=== PATIENT | male | born 1950 | race Caucasian/White ===

== ENCOUNTER 2021-11-21 15:01 | Inpatient (IN) ==
[2021-11-21] MEDS ORDERED: 0.9 % SODIUM CHLORIDE 1,000 ML IV ONE ×2 (15:13→17:32)
--- NOTE | 2021-11-21 15:31 | Emergency Department Note ---
HPI <Lexie Rosa PA-C - Last Filed: 11/21/21 18:53> General Chief complaint: Fall Stated complaint: fall Time Seen by Provider: 11/21/21 15:12 Source: patient Mode of arrival: ambulatory Limitations: no limitations History of Present Illness HPI Narrative: 71-year-old male with history of bladder cancer status post urostomy, dementia, atrial fibrillation not on anticoagulants, thrombocythemia on hydroxyurea, T2DM, and hypertension presents with 48 hours of altered mental status. Daughter states that he was well up until Tuesday when he developed a cough. She noted that he was more unsteady on his feet and then sustained a fall on that was unwitnessed and is now complaining of left hip pain. Shortly after that he stopped eating, came confused, and this morning walked out to his shop unclothed. For this reason they brought him in for evaluation. Related Data Home Medications Medication Instructions Recorded Confirmed cartilage 40 mg-collagen II 10 1 tab PO QDAY 01/15/21 10/01/21 mg-boron 5 mg-hyaluronate 3.3 mg tablet (Smava) krill oil 500 mg capsule 500 mg PO QDAY cap 01/15/21 10/01/21 lisinopril 10 mg tablet 10 mg PO QDAY 01/15/21 10/01/21 fruguhmp-uam-wmpnv acid 300 1 tab PO QDAY 01/15/21 10/01/21 mcg-lycopene 600 mcg-lutein 300 mcg tablet (Centrum Silver Ultra Men's) aspirin 81 mg capsule,delayed 81 mg PO QDAY 04/13/21 10/01/21 release metformin 500 mg tablet 1,000 mg PO BID 04/13/21 10/01/21 cholecalciferol (vitamin D3) 50 50 mcg PO QDAY 09/16/21 10/01/21 mcg (2,000 unit) tablet (Vitamin D3) cranberry 36 mg PO QDAY 09/16/21 10/01/21 digoxin 125 mcg (0.125 mg) tablet 0.25 mcg PO .COMPLEX 09/16/21 10/01/21 glipizide 5 mg tablet 5 mg PO QDAY tab 09/16/21 10/01/21 hydroxyurea 500 mg capsule (Hydrea) 500 mg PO BID cap 09/16/21 10/01/21 Allergies Allergy/AdvReac Type Severity Reaction Status Date / Time No Known Drug Allergies Allergy Verified 10/01/21 07:35 Review of Systems <Lexie Rosa PA-C - Last Filed: 11/21/21 18:53> ROS ROS Narrative: Narrative: All systems ED: reviewed and negative except as stated. PFSH <Lexie Rosa PA-C - Last Filed: 11/21/21 18:53> Narrative Patient History Narrative: Narrative: Medical/Surgical/Family History All Active Problems (Updated 11/21/21 @ 19:31 by Christian Yeboah MD) Essential hypertension (Acute) Anemia, macrocytic (Acute) Thrombocythemia (Acute) Delirium (Acute) Sepsis (Acute) Acute UTI (Acute) Altered mental status (Acute) Acute hyponatremia (Acute) Medicare annual wellness visit, initial (Acute) Prostate cancer (Chronic) Migraines (Chronic) Sciatic nerve pain (Chronic) Diabetes mellitus (Chronic) Hematuria (Chronic) Chest pain (Chronic) Arthritis (Chronic) Rib fracture (Chronic) Encounter for smoking cessation counseling (Chronic) Tobacco abuse (Chronic) Dementia (Chronic) COPD (chronic obstructive pulmonary disease) (Chronic) Neuropathy (Chronic) Diabetes mellitus, type II (Chronic) Lumbar degenerative disc disease (Chronic) Lumbar spondylosis with myelopathy (Chronic) Lumbar radiculopathy (Chronic) Constipation (Chronic) Amnesia (Chronic) Dizziness (Chronic) Left hip pain (Chronic) Polycythemia (Chronic) Hypertension (Chronic) Left knee pain (Chronic) Low back pain (Chronic) Dehydration (Chronic) UTI (urinary tract infection) (Chronic) Sacral back pain (Chronic) Radicular low back pain (Chronic) Orthostatic dizziness (Chronic) Medical History Amnesia Arthritis Bladder cancer 1999 with urostomy bag Chest pain Constipation COPD (chronic obstructive pulmonary disease) Dehydration Dementia Diabetes mellitus Diabetes mellitus, type II Dizziness Encounter for smoking cessation counseling Hematuria Hypertension Left hip pain Left knee pain Low back pain Lumbar degenerative disc disease Lumbar radiculopathy Lumbar spondylosis with myelopathy Medicare annual wellness visit, initial Migraines Neuropathy Orthostatic dizziness Polycythemia Prostate cancer Pulmonary embolism 2000 Radicular low back pain Rib fracture Sacral back pain Sciatic nerve pain Tobacco abuse 2 ppd, doesn't inhale UTI (urinary tract infection) Surgical History History of herniorrhaphy History of knee surgery History of prostatectomy (~1999) With Ileal Conduit History of total cystectomy (~1999) Family History Other No pertinent family history Social History Smoking Status: Current every day smoker Alcohol Intake Frequency: 0-2 drinks per day Substance Use: does not use Exam <Lexie Rosa PA-C - Last Filed: 11/21/21 18:53> Narrative Narrative: General: Oriented to self and location, not oriented to date. NAD, nontoxic appearing. Pleasant and conversant. HEENT: PERRL, EOMI, normocephalic. Dry mucous membranes. Normal facies and normal dentition. Chest: Symmetric, no pain to palpation Respiratory: Lungs clear to auscultation bilaterally. No respiratory distress. Unlabored breathing. Audible dry cough. Heart: Regular rate and rhythm, no murmurs/clicks/rubs. Abdomen: Mild diffuse tenderness, Non distended, normal bowel tones. No organomegaly. Urostomy to right lower quadrant. Foul-smelling urine output. Extremities: Warm and well perfused. No edema. DP 2+ bilaterally. No venous stasis. Neuro: No focal deficits. Cranial nerves II-XII grossly normal. Skin: Warm dry, no rashes or lesions, no cyanosis. Psych: Normal mood and affect Heme/Lymph: No abnormal bruising General Limitations: no limitations Course <Lexie Rosa PA-C - Last Filed: 11/21/21 18:53> Course Course Narrative: 71-year-old male with recent unwitnessed fall presents with altered mental status over the last 48 hours Reevaluation(s) Reevaluation #1: Obtain head and neck CT to assure no intracranial pathology or fractures. AP of pelvis and bilateral hips to r/o fx CBC, CMP, lactic acid, blood cultures, chest x-ray, Covid and influenza swabs EKG Reevaluation #2: EKG shows sinus rhythm with rate 89 bpm and frequent PACs. There are approximately [address] depressions in lead V4 and approximately [address] depression in lead V5. This is changed from prior EKG dated 10/09/2019. For this reason we will obtain troponin. Patient is currently not complaining of chest pain. Reevaluation #3: Head and neck CT are negative. AP of the pelvis and bilateral hips is negative. Patient's urine dip was positive for infectious markers, so this has been sent for culture. Lactic acid came back at 2.4 and blood cultures x2 are pending. I have started 1 g IV ceftriaxone and have given 1 L IV normal saline and will start a second liter. Troponin is less than 0.01, will repeat an EKG Chest x-ray shows no acute infiltrates or effusions Additional Reevaluation(s): CMP with corrected sodium of 127. This was normal at 137 in August. BUN is elevated at 33 UA is Leukocyte esterace +, WBC+, bacteria+ Repeat EKG shows normal sinus rhythm with improved ST depression in lead V4 Vital Signs Vital signs: Vital Signs Temperature 98.7 F 11/21/21 15:01 Pulse Rate 84 11/21/21 15:01 Respiratory Rate 18 11/21/21 15:01 Blood Pressure 147/72 11/21/21 15:01 Pulse Oximetry (%) 94 11/21/21 15:01 Temperature 98.7 F 11/21/21 15:01 Pulse Rate 89 11/21/21 19:31 Respiratory Rate 15 11/21/21 19:31 Blood Pressure 127/75 11/21/21 19:31 Pulse Oximetry (%) 92 11/21/21 19:31 [facility] <Lexie Rosa PA-C - Last Filed: 11/21/21 18:53> [facility] Narrative Medical decision making narrative: Altered mental status Hyponatremia UTI Sepsis Patient meets criteria for sepsis and admission. He has been given 1 g of IV ceftriaxone. Blood cultures and urine cultures are currently pending. He has received 1.5 L of IV fluids. Head CT was negative for acute intracranial findings. Patient has been discussed with Dr. Yeboah, hospitalist, who has accepted the patient for admission. Lab Data Result diagrams: 11/21/21 15:34 11/21/21 15:34 Labs: Lab Results 11/21/21 11/21/21 11/21/21 Range/Units 15:34 15:34 15:34 WBC 7.2 (4.5-11.0) K/mcL RBC 3.76 L (4.63-6.08) M/mcL Hgb 12.9 L (13.7-17.5) g/dL Hct 38.2 L (40.1-51.0) % MCV 101.6 H (80.0-100.0) fL MCH 34.3 H (26.0-34.0) pg MCHC 33.8 (31.0-36.0) g/dL RDW 13.7 (11.5-14.5) % Plt Count 264 (140-440) K/mcL MPV 9.7 (7.4-10.4) fL Neut % (Auto) 80.4 H (38.0-78.0) % Lymph % (Auto) 8.5 L (15.5-49.0) % [place]hing % (Auto) 10.8 (1.0-12.0) % Eos % (Auto) 0 (0.0-7.0) % Baso % (Auto) 0.3 (0.0-2.0) % Lymph # (Auto) 0.61 L (1.50-4.80) K/mcL [place]hing # (Auto) 0.78 (0.10-0.90) K/mcL Eos # (Auto) 0 (0.00-0.70) K/mcL Baso # (Auto) 0.02 (0.00-0.30) K/mcL Absolute Neutrophils 5.78 (1.80-8.00) K/mcL VBG Lactic Acid 2.4 H (0.5-2.0) mmol/L Sodium 124 L (133-145) mmol/L Potassium 3.8 (3.3-5.1) mmol/L Chloride 88 L (96-108) mmol/L Carbon Dioxide 22 (22-30) mmol/L Anion Gap 14.0 (8.0-16.0) BUN 33 H (8-23) mg/dL Creatinine 0.9 (0.7-1.2) mg/dL GFR Calculation 85 Glucose 240 H (70-105) mg/dL Calcium 9.5 (8.6-10.4) mg/dL Total Bilirubin 1.3 H (0.1-1.0) mg/dL AST 61 H (<40) U/L ALT 28 (<40) U/L Alkaline Phosphatase 40 (39-117) U/L Troponin T (<0.03) ng/mL Total Protein 7.2 (5.9-8.4) gm/dL Albumin 3.7 (3.2-5.2) gm/dL Globulin 3.5 (2.2-3.7) gm/dL Albumin/Globulin Ratio 1.1 (1.0-2.3) Urine Color Urine Appearance (Clear) Urine pH (5.0-9.0) Ur Specific [place] (1.000-1.035) Urine Protein (Negative) mg/dL Urine Glucose (UA) (Negative) mg/dL Urine Ketones (Negative) mg/dL Urine Occult Blood (Negative) mg/dL Urine Nitrate (Negative) Urine Bilirubin (Negative) mg/dL Urine Urobilinogen mg/dL Ur Leukocyte Esterase (Negative) /uL Urine RBC (0-3) /hpf Urine WBC (0-4) /hpf Ur Squamous Epith Cells (0-4) /hpf Urine Bacteria (0) /hpf Hyaline Casts (0-2) /lph Urine Mucus (None) /hpf Ur Culture Indicated? Digoxin ng/mL 11/21/21 11/21/21 11/21/21 Range/Units 15:34 15:34 16:24 WBC (4.5-11.0) K/mcL RBC (4.63-6.08) M/mcL Hgb (13.7-17.5) g/dL Hct (40.1-51.0) % MCV (80.0-100.0) fL MCH (26.0-34.0) pg MCHC (31.0-36.0) g/dL RDW (11.5-14.5) % Plt Count (140-440) K/mcL MPV (7.4-10.4) fL Neut % (Auto) (38.0-78.0) % Lymph % (Auto) (15.5-49.0) % Pershing % (Auto) (1.0-12.0) % Eos % (Auto) (0.0-7.0) % Baso % (Auto) (0.0-2.0) % Lymph # (Auto) (1.50-4.80) K/mcL [place]hing # (Auto) (0.10-0.90) K/mcL Eos # (Auto) (0.00-0.70) K/mcL Baso # (Auto) (0.00-0.30) K/mcL Absolute Neutrophils (1.80-8.00) K/mcL VBG Lactic Acid (0.5-2.0) mmol/L Sodium (133-145) mmol/L Potassium (3.3-5.1) mmol/L Chloride (96-108) mmol/L Carbon Dioxide (22-30) mmol/L Anion Gap (8.0-16.0) BUN (8-23) mg/dL Creatinine (0.7-1.2) mg/dL GFR Calculation Glucose (70-105) mg/dL Calcium (8.6-10.4) mg/dL Total Bilirubin (0.1-1.0) mg/dL AST (<40) U/L ALT (<40) U/L Alkaline Phosphatase (39-117) U/L Troponin T < 0.01 (<0.03) ng/mL Total Protein (5.9-8.4) gm/dL Albumin (3.2-5.2) gm/dL Globulin (2.2-3.7) gm/dL Albumin/Globulin Ratio (1.0-2.3) Urine Color Yellow Urine Appearance Hazy A (Clear) Urine pH 5.0 (5.0-9.0) Ur Specific [place] 1.017 (1.000-1.035) Urine Protein 100 A (Negative) mg/dL Urine Glucose (UA) 50 A (Negative) mg/dL Urine Ketones Negative (Negative) mg/dL Urine Occult Blood 0.20 (Negative) mg/dL Urine Nitrate Negative (Negative) Urine Bilirubin Negative (Negative) mg/dL Urine Urobilinogen Negative mg/dL Ur Leukocyte Esterase 75 A (Negative) /uL Urine RBC 1 (0-3) /hpf Urine WBC 44 H (0-4) /hpf Ur Squamous Epith Cells 0 (0-4) /hpf Urine Bacteria Mod A (0) /hpf Hyaline Casts 4 H (0-2) /lph Urine Mucus Few A (None) /hpf Ur Culture Indicated? yes Digoxin 1.5 ng/mL ED POC Tests ED POC Tests: EMELINA - Influenza A Negative EMELINA - Influenza B Negative EMELINA - SARS Antigen Negative Discharge Plan Patient/Caregiver Discharge Instructions Pt seen by [facility]/PA only: Yes Clinical Impression: Sepsis, Acute UTI, Altered mental status, Acute hyponatremia Patient Disposition: Xfer As Inpt ([facility]) Condition: Fair Discharge Date/Time: 11/21/21 19:46
--- NOTE | 2021-11-21 16:25 | Cat Scan Report ---
History: Fell with head injury TECHNIQUE: The brain was imaged without contrast in axial plane at 2.5 mm intervals. Sagittal and coronal reformats were created. The radiation exposure was limited using dose reduction technology. FINDINGS: Mild generalized cerebral atrophy is present. There is an old infarct with encephalomalacia inferiorly and medially in the left cerebellar hemisphere. No acute infarct is present. There is no hemorrhage or mass effect. Ventricles are normal in size, allowing for atrophy. No abnormal extra-axial fluid collection is present. The bone windows show no skull fracture. Mucosal thickening is seen along the andrew of many of the ethmoid air cells bilaterally. Patient has a prosthetic left orbital globe. Comparison with the prior brain MRI done on 11/07/19 and shows no change in appearance of the brain. 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
[2021-11-21] MEDS ORDERED: cefTRIAXone 1 GM VIAL IV ONE (16:28)
[2021-11-21 16:29] LABS: Basophils # (Auto) 0.02 K/mcL (0.00-0.30); Basophils % (Auto) 0.3 % (0.0-2.0); Eosinophils # (Auto) 0 K/mcL (0.00-0.70); Eosinophils % (Auto) 0 % (0.0-7.0); Hematocrit 38.2 % (40.1-51.0); Hemoglobin 12.9 g/dL (13.7-17.5); Lymphocytes # (Auto) 0.61 K/mcL (1.50-4.80); Lymphocytes % (Auto) 8.5 % (15.5-49.0); Mean Cell Volume 101.6 fL (80.0-100.0); Mean Corpuscular HGB Conc 33.8 g/dL (31.0-36.0); Mean Platelet Volume 9.7 fL (7.4-10.4); Monocytes # (Auto) 0.78 K/mcL (0.10-0.90); Monocytes % (Auto) 10.8 % (1.0-12.0); Neutrophils % (Auto) 80.4 % (38.0-78.0); Platelet Count 264 K/mcL (140-440); RBC 3.76 M/mcL (4.63-6.08); Red Cell Distribution Width 13.7 % (11.5-14.5); WBC 7.2 K/mcL (4.5-11.0)
[2021-11-21 16:54] LABS: ALT/SGPT 28 U/L (<40); AST/SGOT 61 U/L (<40); Albumin 3.7 gm/dL (3.2-5.2); Albumin/Globulin Ratio 1.1 (1.0-2.3); Alkaline Phosphatase 40 U/L (39-117); Bilirubin,Total 1.3 mg/dL (0.1-1.0); Blood Urea Nitrogen 33 mg/dL (8-23); Calcium 9.5 mg/dL (8.6-10.4); Carbon Dioxide 22 mmol/L (22-30); Chloride 88 mmol/L (96-108); Globulin 3.5 gm/dL (2.2-3.7); Glomerular Filtration Rate 85; Glucose 240 mg/dL (70-105)
[2021-11-21 17:32] LABS: Appearance,Urine HAZY (Clear); Bacteria,Urine MOD /hpf (0); Bilirubin,Urine Negative (Negative); Color,Urine YELLOW; Culture Indicated,Urine yes; Glucose,Urine (UA) 50 mg/dL (Negative); Ketones,Urine Negative (Negative); Leukocyte Esterase,Urine 75 /uL (Negative); Mucus,Urine FEW /hpf; Nitrate,Urine Negative (Negative); Protein,Urine 100 mg/dL (Negative); Specific Gravity,Urine 1.017 (1.000-1.035); Urine Hyaline Cast 4 /lph (0-2); Urine RBC 1 /hpf (0-3); Urine Squamous Epithelial Cell 0 /hpf (0-4); Urine WBC 44 /hpf (0-4); Urobilinogen,Urine Negative
[2021-11-21 19:03] LABS: Digoxin 1.5 ng/mL
--- NOTE | 2021-11-21 19:38 | Internal Med History&Physical ---
HPI History of Present Illness Patient information: Note initiated : 11/21/21 at 7:20 pm Service Date, if different from initiated Date: [] Patient: Kwabena Fong 71 y/o M admitted on for fall. Chief Complaint: [altered mental status] Chief complaint: altered mental status History of present illness: Mr. Fong is a 71 year old M h/o bladder cancer s/p urostomy, T2DM, dementia, atrial fibrillation not on anticoagulant, thrombocythemia, essential HTN, p/w altered mental status with increasing confusion for 2 days and fall yesterday. Urostomy bag was last exchanged "long time ago". Daughter noted patient to be more confused than his baseline for the last 2 days. Patient had a unwitnessed fall yesterday (11/20) and now is c/o left hip pain. History otherwise limited by patient's mental status as well as absence of caregiver/family at the bedside. Vital signs all within normal limits upon ED presentation. Labs significant for lack of leukocytosis with EBC 7.2. Lactic acid 2.4. Serum sodium level 124 with baseline 137. Blood glucose 240. UA suggestive of presence of UTI. CT head w/o contrast showed on acute intracranial pathologies. Hip/pelvis X ray no signs of bone fracture of joint dislocation. Review of Systems ROS unobtainable: due to mental status PFSH PFSH All Active Problems (Updated 11/21/21 @ 19:31 by Christian Yeboah MD) Essential hypertension (Acute) Anemia, macrocytic (Acute) Thrombocythemia (Acute) Delirium (Acute) Sepsis (Acute) Acute UTI (Acute) Altered mental status (Acute) Acute hyponatremia (Acute) Medicare annual wellness visit, initial (Acute) Prostate cancer (Chronic) Migraines (Chronic) Sciatic nerve pain (Chronic) Diabetes mellitus (Chronic) Hematuria (Chronic) Chest pain (Chronic) Arthritis (Chronic) Rib fracture (Chronic) Encounter for smoking cessation counseling (Chronic) Tobacco abuse (Chronic) Dementia (Chronic) COPD (chronic obstructive pulmonary disease) (Chronic) Neuropathy (Chronic) Diabetes mellitus, type II (Chronic) Lumbar degenerative disc disease (Chronic) Lumbar spondylosis with myelopathy (Chronic) Lumbar radiculopathy (Chronic) Constipation (Chronic) Amnesia (Chronic) Dizziness (Chronic) Left hip pain (Chronic) Polycythemia (Chronic) Hypertension (Chronic) Left knee pain (Chronic) Low back pain (Chronic) Dehydration (Chronic) UTI (urinary tract infection) (Chronic) Sacral back pain (Chronic) Radicular low back pain (Chronic) Orthostatic dizziness (Chronic) Medical History Amnesia Arthritis Bladder cancer 1999 with urostomy bag Chest pain Constipation COPD (chronic obstructive pulmonary disease) Dehydration Dementia Diabetes mellitus Diabetes mellitus, type II Dizziness Encounter for smoking cessation counseling Hematuria Hypertension Left hip pain Left knee pain Low back pain Lumbar degenerative disc disease Lumbar radiculopathy Lumbar spondylosis with myelopathy Medicare annual wellness visit, initial Migraines Neuropathy Orthostatic dizziness Polycythemia Prostate cancer Pulmonary embolism 1999 Radicular low back pain Rib fracture Sacral back pain Sciatic nerve pain Tobacco abuse 2 ppd, doesn't inhale UTI (urinary tract infection) Surgical History History of herniorrhaphy History of knee surgery History of prostatectomy (~1999) With Ileal Conduit History of total cystectomy (~1999) Family History Other No pertinent family history Social History household members: spouse marital status: education level: college occupational status: retired smoking status: Current every day smoker alcohol intake frequency: 0-2 drinks per day substance use type: does not use MEDS/ALLERGIES Home Medications and Allergies Home Medications Medication Instructions Recorded Confirmed Type cartilage 40 mg-collagen II 10 1 tab PO QDAY 01/15/21 10/01/21 History mg-boron 5 mg-hyaluronate 3.3 mg tablet ([employer]) krill oil 500 mg capsule 500 mg PO QDAY cap 01/15/21 10/01/21 History lisinopril 10 mg tablet 10 mg PO QDAY 01/15/21 10/01/21 History vprygbzy-may-spokr acid 300 1 tab PO QDAY 01/15/21 10/01/21 History mcg-lycopene 600 mcg-lutein 300 mcg tablet (Centrum Silver Ultra Men's) aspirin 81 mg capsule,delayed 81 mg PO QDAY 04/13/21 10/01/21 History release metformin 500 mg tablet 1,000 mg PO BID 04/13/21 10/01/21 History cholecalciferol (vitamin D3) 50 50 mcg PO QDAY 09/16/21 10/01/21 History mcg (2,000 unit) tablet (Vitamin D3) cranberry 36 mg PO QDAY 09/16/21 10/01/21 History digoxin 125 mcg (0.125 mg) tablet 0.25 mcg PO .COMPLEX 09/16/21 10/01/21 History glipizide 5 mg tablet 5 mg PO QDAY tab 09/16/21 10/01/21 History hydroxyurea 500 mg capsule (Hydrea) 500 mg PO BID cap 09/16/21 10/01/21 History Allergies Allergy/AdvReac Type Severity Reaction Status Date / Time No Known Drug Allergies Allergy Verified 10/01/21 07:35 EXAM Constitutional Vitals: Temp Pulse Resp BP Pulse Ox 37.1 C 91 H 20 124/67 94 11/21/21 15:01 11/21/21 19:01 11/21/21 19:01 11/21/21 19:01 11/21/21 19:01 General appearance: cooperative, disheveled and no acute distress Head Head exam: Present atraumatic and normocephalic Eye Eye exam: Present EOMI and PERRL ENT ENT exam: Present mucous membranes moist, normal exam and normal external ear exam Neck Neck exam: Present normal inspection; Absent lymphadenopathy, tenderness or thyromegaly Respiratory Respiratory exam: Absent accessory muscle use, respiratory distress or wheezes Cardiovascular Cardiovascular exam: Present irregular rhythm; Absent JVD GI/Abdominal GI/Abdominal exam: Present normal bowel sounds and soft; Absent organomegaly or tenderness Rectal Rectal exam: Present deferred Additional comments: Urostomy bag in place Extremities Exam Extremities exam: Present full ROM and normal capillary refill; Absent normal inspection or tenderness Additional comments: Deformed bilateral toes Neurological Exam Neurological exam: Present alert and CN II-XII intact; Absent motor sensory deficit or oriented X3 Additional comments: oriented X2 to person and time only Psychiatric Psychiatric exam: Present normal affect and normal mood; Absent anxious or depressed Skin Skin exam: Present dry and intact DATA Data Completed and Pending Labs: Labs from last 24 hours 11/21/21 11/21/21 11/21/21 16:24 15:34 15:34 WBC RBC Hgb Hct MCV MCH MCHC RDW Plt Count MPV Neut % (Auto) Lymph % (Auto) Falls % (Auto) Eos % (Auto) Baso % (Auto) Lymph # (Auto) [place] # (Auto) Eos # (Auto) Baso # (Auto) Absolute Neutrophils VBG Lactic Acid Sodium Potassium Chloride Carbon Dioxide Anion Gap BUN Creatinine GFR Calculation Glucose Calcium Total Bilirubin AST ALT Alkaline Phosphatase Troponin T < 0.01 Total Protein Albumin Globulin Albumin/Globulin Ratio Urine Color Yellow Urine Appearance Hazy A Urine pH 5.0 Ur Specific [place] 1.017 Urine Protein 100 A Urine Glucose (UA) 50 A Urine Ketones Negative Urine Occult Blood 0.20 Urine Nitrate Negative Urine Bilirubin Negative Urine Urobilinogen Negative Ur Leukocyte Esterase 75 A Urine RBC 1 Urine WBC 44 H Ur Squamous Epith Cells 0 Urine Bacteria Mod A Hyaline Casts 4 H Urine Mucus Few A Ur Culture Indicated? yes Digoxin 1.5 11/21/21 11/21/21 11/21/21 15:34 15:34 15:34 WBC 7.2 RBC 3.76 L Hgb 12.9 L Hct 38.2 L MCV 101.6 H MCH 34.3 H MCHC 33.8 RDW 13.7 Plt Count 264 MPV 9.7 Neut % (Auto) 80.4 H Lymph % (Auto) 8.5 L [place] % (Auto) 10.8 Eos % (Auto) 0 Baso % (Auto) 0.3 Lymph # (Auto) 0.61 L [place] # (Auto) 0.78 Eos # (Auto) 0 Baso # (Auto) 0.02 Absolute Neutrophils 5.78 VBG Lactic Acid 2.4 H Sodium 124 L Potassium 3.8 Chloride 88 L Carbon Dioxide 22 Anion Gap 14.0 BUN 33 H Creatinine 0.9 GFR Calculation 85 Glucose 240 H Calcium 9.5 Total Bilirubin 1.3 H AST 61 H ALT 28 Alkaline Phosphatase 40 Troponin T Total Protein 7.2 Albumin 3.7 Globulin 3.5 Albumin/Globulin Ratio 1.1 Urine Color Urine Appearance Urine pH Ur Specific [place] Urine Protein Urine Glucose (UA) Urine Ketones Urine Occult Blood Urine Nitrate Urine Bilirubin Urine Urobilinogen Ur Leukocyte Esterase Urine RBC Urine WBC Ur Squamous Epith Cells Urine Bacteria Hyaline Casts Urine Mucus Ur Culture Indicated? Digoxin A/P Assessment and plan (1) Acute UTI: Status: Acute (2) Diabetes mellitus, type II: Status: Chronic (3) Bladder cancer: Status: Resolved Comment: 1999 with urostomy bag (4) Dementia: Status: Chronic (5) Acute hyponatremia: Status: Acute (6) Delirium: Status: Acute (7) Thrombocythemia: Status: Acute (8) Anemia, macrocytic: Status: Acute (9) Essential hypertension: Status: Acute Narrative A/P Narrative: Assessment and Plans: 1. UTI with associated acute delirium, in the context of h/o bladder cancer s/p urostomy placement: Inpatient PCU telemetry Serial lactic acid Procalcitonin level Blood culture Urine culture cbc w/ auto diff in the morning to trend WBC level Roephin s/p IV fluid bolus given in the ED, to be followed by NS@75cc/hr Tylenol PRN fever Urostomy bag exchanged in the ED Physical therapy Occupational therapy 2. Acute hyponatremia: s/p IV fluid bolus given in the ED, to be followed by NS@75cc/hr Goal of correction 8-10 point over the first 24 hour to avoid over correction with associated neurological consequences such as [place] Myelynolysis BMP q6hr 3. T2DM; HgA1c Hold Metformin Glipizide Medium scale SSI AC HS Accu Chek AC HS Hypoglycemia protocol Diabetic diet 4. Permanent atrial fibrillation: [id number] score of 3, not on anticoagulation therapy due to increased fall risk and recent fall(s) Digoxin 5. Thrombocythemia: Hydroxyurea 6. Dementia: Continue to monitor, treat overlapping delirium with IV fluid and antibiotics 7. Macrocytic hyperchromic anemia: cbc w/ auto diff in the morning to trend H/H 8. Essential HTN: Currently normotensive GI ppx: not currently indicated DVT ppx: Lovenox Code status: Full Prognosis: guarded Disposition: inpatient PCU ; PT OT Time Spent With Patient Time: Total time spent is greater than 50% in coordination of care (as documented) at patient's floor/unit and/or counseling patient: Total time spent with greater than 50% in coordination of care (as documented) at patient's floor/unit and/or counseling patient:: Greater than 35 minutes
[2021-11-21] MEDS ORDERED: LACTULOSE 20 GM/30 ML ORAL.SOL PO PRN (19:52)
[2021-11-21] MEDS ORDERED: DEXTROSE 31 GM ORAL.SUSP PO PRN (19:52)
[2021-11-21] MEDS ORDERED: IPRATROPIUM/ALBUTEROL 3 ML AMPUL.NEB NEB PRN (19:52)
[2021-11-21] MEDS ORDERED: DEXTROSE 50% 50 ML VIAL IV PRN (19:52)
[2021-11-21] MEDS ORDERED: SENNOSIDES 1 TABLET PO PRN (19:52)
[2021-11-21] MEDS ORDERED: ONDANSETRON 4 MG/2 ML VIAL IV PRN (19:52)
[2021-11-21] MEDS ORDERED: cefTRIAXone 1 GM in DEXTROSE 5% IN WATER 50 ML IV SCH (19:52)
[2021-11-21] MEDS: 0.9 % SODIUM CHLORIDE 1,000 ML IV SCH (20:25)
[2021-11-21] MEDS: ACETAMINOPHEN 325 MG TABLET PO PRN (20:25)
[2021-11-21] MEDS: DOCUSATE SODIUM 100 MG CAPSULE PO SCH (20:26)
[2021-11-21] MEDS: 0.9 % SODIUM CHLORIDE 10 ML SYRINGE IV SCH (20:26)
[2021-11-21] MEDS: INSULIN LISPRO 1 UNIT/0.01 ML UNIT SQ SCH (20:26)
[2021-11-21] MEDS: HYDROXYUREA 500 MG CAPSULE PO SCH (20:41)
[2021-11-21 21:27] LABS: ALT/SGPT 29 U/L (<40); AST/SGOT 58 U/L (<40); Albumin 3.6 gm/dL (3.2-5.2); Albumin/Globulin Ratio 1.1 (1.0-2.3); Alkaline Phosphatase 38 U/L (39-117); Blood Urea Nitrogen 28 mg/dL (8-23); Calcium 8.8 mg/dL (8.6-10.4); Carbon Dioxide 21 mmol/L (22-30); Chloride 94 mmol/L (96-108); Globulin 3.2 gm/dL (2.2-3.7); Glomerular Filtration Rate 89; Glucose 205 mg/dL (70-105)
[2021-11-21 22:45] LABS: Estimated Average Glucose(eAG) 134 mg/dL; Hemoglobin A1C 6.3 % Hgb (4.0-6.0)
[2021-11-22 02:06] LABS: Blood Urea Nitrogen 30 mg/dL (8-23); Calcium 9.1 mg/dL (8.6-10.4); Carbon Dioxide 23 mmol/L (22-30); Chloride 94 mmol/L (96-108); Glomerular Filtration Rate 75; Glucose 142 mg/dL (70-105)
[2021-11-22] MEDS: 0.9 % SODIUM CHLORIDE 10 ML SYRINGE IV SCH ×3 (04:40→20:11)
[2021-11-22 07:07] LABS: Phosphorous 0.7 mg/dL (2.5-4.5)
[2021-11-22 07:10] LABS: Basophils # (Auto) 0.03 K/mcL (0.00-0.30); Basophils % (Auto) 0.4 % (0.0-2.0); Eosinophils # (Auto) 0 K/mcL (0.00-0.70); Eosinophils % (Auto) 0 % (0.0-7.0); Hematocrit 36.3 % (40.1-51.0); Hemoglobin 12.1 g/dL (13.7-17.5); Lymphocytes # (Auto) 0.39 K/mcL (1.50-4.80); Lymphocytes % (Auto) 5.2 % (15.5-49.0); Mean Cell Volume 102.5 fL (80.0-100.0); Mean Corpuscular HGB Conc 33.3 g/dL (31.0-36.0); Mean Platelet Volume 10.1 fL (7.4-10.4); Monocytes # (Auto) 0.77 K/mcL (0.10-0.90); Monocytes % (Auto) 10.3 % (1.0-12.0); Neutrophils % (Auto) 84.1 % (38.0-78.0); Platelet Count 258 K/mcL (140-440); RBC 3.54 M/mcL (4.63-6.08); Red Cell Distribution Width 13.9 % (11.5-14.5); WBC 7.5 K/mcL (4.5-11.0)
--- NOTE | 2021-11-22 07:15 | Cat Scan Report ---
History: Fell with neck injury TECHNIQUE: The neck was imaged without contrast in axial plane at 2.5 mm intervals. Sagittal and coronal reformats were created. The radiation exposure was limited using dose reduction technology. FINDINGS: No fracture, spondylolisthesis or destructive bone lesion are present. The cervico-occipital junction is normal. Mild arthritis is present at the articulation of the odontoid and anterior ring of C1 The C2-3 disc is normal in height. Moderate arthritis is present in the left facet and there is spurring of the left side uncinate process causing mild stenosis of the foramen. C3-4 disc is moderately narrowed and degenerated. There are spurs along both anterior and posterior borders of the disc and mild arthritis in both facets. There is a medium-size spur posterolaterally on the left side. Left-sided neural foramen is moderately stenotic and there is mild stenosis of the right. C4-5 disc is moderately narrowed and degenerated. There are small anterior and posterior osteophytes and there is moderate spurring of the uncinate processes bilaterally, right greater than left. Mild arthritis is present in the right facet. There is moderate stenosis of both neural foramina. The C5-C6 disc is severely narrowed and degenerated. There are medium-size posterior small anterior osteophytes. This is causing mild central canal stenosis. Mild arthritis is present in both facets and there is spurring of the uncinate processes bilaterally with severe stenosis of the left and moderate stenosis right-sided foramina. C6-7 disc is moderately narrowed and degenerated with small anterior and posterior osteophytes. There is spurring of the uncinate processes and mild stenosis of both foramina, right worse than left. C7-T1 disc is mildly narrowed and degenerated and there is relatively little spur formation. The T1-2 level is normal. T2-3 and T3-4 disc space are mildly narrowed and there are small anterior osteophytes. No paraspinal mass or hematoma are present. There are a few tiny bulla in the right apex. Thyroid and larynx are normal. There are few calcified plaques in the right carotid bifurcation. 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
--- NOTE | 2021-11-22 07:16 | XRay Report ---
HISTORY: Fell with pelvic and hip injuries FINDINGS: AP view of the pelvis and frog lateral views of both hips were obtained. No fracture or dislocation are present. Joint spaces in both hips are normal in width and alignment and there is no underlying arthritis. There are numerous surgical clips along the pelvic sidewall bilaterally extending down to the lower border of the pubic bone. The bones are normally mineralized and there are no lytic or blastic metastasis. IMPRESSION: No fracture Interpreted and Authenticated by: Syd Mo 11/22/21
--- NOTE | 2021-11-22 07:18 | XRay Report ---
HISTORY: Fell, rule out pneumonia FINDINGS: There are small bands of discoid atelectasis at the right costophrenic sulcus. The lungs are otherwise clear and well expanded. There is no evidence of pulmonary contusion, pneumonia, pneumothorax or pleural effusion. The heart size and mediastinum are normal. No fracture is detected. Comparison with the prior x-ray done on 10/09/19 shows the discoid atelectasis at the right costophrenic sulcus is new. IMPRESSION: Discoid atelectasis in the lateral basal segment right lower lobe. The exam is otherwise normal. Interpreted and Authenticated by: Syd Mo 11/22/21
[2021-11-22 07:36] LABS: Blood Urea Nitrogen 28 mg/dL (8-23); Calcium 9.2 mg/dL (8.6-10.4); Carbon Dioxide 21 mmol/L (22-30); Chloride 99 mmol/L (96-108); Glomerular Filtration Rate 94; Glucose 191 mg/dL (70-105)
[2021-11-22] MEDS: INSULIN LISPRO 1 UNIT/0.01 ML UNIT SQ SCH ×4 (08:06→20:10)
[2021-11-22] MEDS: glipiZIDE 5 MG TABLET PO SCH (08:06)
[2021-11-22] MEDS ORDERED: [UNRECOGNIZED DRUG - OTHER] PO SCH (09:00)
[2021-11-22] MEDS ORDERED: CRANBERRY PO SCH (09:00)
[2021-11-22] MEDS: ASPIRIN 81 MG TAB.CHEW PO SCH (09:10)
[2021-11-22] MEDS: DOCUSATE SODIUM 100 MG CAPSULE PO SCH ×2 (09:10→20:11)
[2021-11-22] MEDS: FISH OIL 1,000 MG CAPSULE PO SCH (09:10)
[2021-11-22] MEDS: ENOXAPARIN 40 MG/0.4 ML SYRINGE SQ SCH (09:10)
[2021-11-22] MEDS: HYDROXYUREA 500 MG CAPSULE PO SCH ×2 (09:10→20:11)
[2021-11-22] MEDS: MULTIVIT,THER IRON,CA,FA & MIN 1 TABLET PO SCH (09:10)
[2021-11-22] MEDS: cefTRIAXone 1 GM VIAL IV SCH (09:11)
[2021-11-22] MEDS: VITAMIN D3 25 MCG TABLET PO SCH (09:11)
[2021-11-22] MEDS: 0.9 % SODIUM CHLORIDE 1,000 ML IV SCH ×2 (09:13→20:37)
[2021-11-22] MEDS ORDERED: BENZOCAINE/MENTHOL 1 LOZENGE PO PRN (09:43)
--- NOTE | 2021-11-22 09:50 | Internal Med Progress Note ---
SUBJECTIVE Subjective Patient information: Note initiated : 11/22/21 at 9:45 am Service Date, if different from initiated Date: [] Patient: Kwabena Fong 71 y/o M admitted on 11/21/21 for fall. Chief Complaint: [] Interval history: Mr. Fong is a 71 year old M h/o bladder cancer s/p urostomy, T2DM, dementia, atrial fibrillation not on anticoagulant, thrombocythemia, essential HTN, p/w altered mental status with increasing confusion for 2 days and fall yesterday. Urostomy bag was last exchanged "long time ago". Daughter noted monie ent to be more confused than his baseline for the last 2 days. Patient had a unwitnessed fall yesterday (11/20) and now is c/o left hip pain. History otherwise limited by patient's mental status as well as absence of caregiver/family at the bedside. Vital signs all within normal limits upon ED presentation. Labs significant for lack of leukocytosis with EBC 7.2. Lactic acid 2.4. Serum sodium level 124 with baseline 137. Blood glucose 240. UA suggestive of presence of UTI. CT head w/o contrast showed on acute intracranial pathologies. Hip/pelvis X ray no signs of bone fracture of joint dislocation. 11/22: Fever Tmax 38.3. Blood and urine cultures no growth to date. Serum sodium level 132. c/o mouth soreness. Denies any fever, chills, or sweating at the moment. Denies any pain or discomfort. Denies any nausea or vomiting. Denies dysuria. Good appetite. Denies general body weakness. Denies anxiety. Denies confusion. Continue Rocephin and Normal Saline infusion. Constitutional Vitals: Vital Signs Temp Pulse Resp BP Pulse Ox 37.3 C H 78 18 105/63 97 11/22/21 08:01 11/22/21 08:01 11/22/21 08:01 11/22/21 08:01 11/22/21 08:01 Period Temp Pulse Resp BP Sys/Bundy Pulse Ox Last 24 Hr 36.8 C-38.3 C 74-96 15-45 105-147/58-93 88-97 Intake and Output 11/21/21 11/22/21 11/22/21 21:59 05:59 13:59 Intake Total 2960 1440 1120 Output Total 400 830 Balance 2560 610 1120 Weight 89.312 kg Intake & Output: Intake & Output 11/21/21 11/22/21 11/22/21 21:59 05:59 13:59 Intake Total 2960 1440 1120 Output Total 400 830 Balance 2560 610 1120 Weight 89.312 kg Intake: IV 2000 1000 Sodium Chloride 0.9% 1,000 ml @ 2000 1000 75 mls/hr IV .[id number] [facility] Rx#: [id number] Oral 960 1440 120 Output: Void Amount 400 830 Other: Meal Breakfast Percent of Meal Consumed 100% Feeding Ability Independent Urine Appearance Cloudy Clear Sediment Urine Color Dark Yellow Bright Yellow Urine Odor Strong Strong General appearance: average body habitus, cooperative and no acute distress Head Head exam: Present atraumatic and normal inspection Eye Eye exam: Present normal appearance ENT ENT exam: Present mucous membranes moist, normal exam and normal external ear exam Neck Neck exam: Present normal inspection Respiratory Respiratory exam: Present normal respiratory exam Cardiovascular Cardiovascular exam: Present irregular rhythm GI/Abdominal GI/Abdominal exam: Present normal bowel sounds Additional comments: Urostomy bag in place Back Exam Back exam: Present normal inspection Neurological Exam Neurological exam: Present alert and oriented X3 Skin Skin exam: Present intact and warm OBJ DATA Labs CBC & Chem 7: 11/22/21 05:43 11/22/21 05:43 Labs: Abnormal Lab Results 11/22/21 11/22/21 11/22/21 05:43 05:43 05:43 RBC 3.54 L Hgb 12.1 L Hct 36.3 L MCV 102.5 H MCH 34.2 H Neut % (Auto) 84.1 H Lymph % (Auto) 5.2 L Lymph # (Auto) 0.39 L VBG Lactic Acid Sodium 132 L Chloride Carbon Dioxide 21 L BUN 28 H Glucose 191 H Hemoglobin A1c Phosphorus 0.7 L Total Bilirubin AST Alkaline Phosphatase Procalcitonin Urine Appearance Urine Protein Urine Glucose (UA) Ur Leukocyte Esterase Urine WBC Urine Bacteria Hyaline Casts Urine Mucus 11/22/21 11/21/21 11/21/21 00:18 20:12 20:12 RBC Hgb Hct MCV MCH Neut % (Auto) Lymph % (Auto) Lymph # (Auto) VBG Lactic Acid Sodium 131 L 128 L Chloride 94 L 94 L Carbon Dioxide 21 L BUN 30 H 28 H Glucose 142 H 205 H Hemoglobin A1c 6.3 H Phosphorus Total Bilirubin AST 58 H Alkaline Phosphatase 38 L Procalcitonin 0.69 H Urine Appearance Urine Protein Urine Glucose (UA) Ur Leukocyte Esterase Urine WBC Urine Bacteria Hyaline Casts Urine Mucus 11/21/21 11/21/21 11/21/21 16:24 15:34 15:34 RBC Hgb Hct MCV MCH Neut % (Auto) Lymph % (Auto) Lymph # (Auto) VBG Lactic Acid 2.4 H Sodium 124 L Chloride 88 L Carbon Dioxide BUN 33 H Glucose 240 H Hemoglobin A1c Phosphorus Total Bilirubin 1.3 H AST 61 H Alkaline Phosphatase Procalcitonin Urine Appearance Hazy A Urine Protein 100 A Urine Glucose (UA) 50 A Ur Leukocyte Esterase 75 A Urine WBC 44 H Urine Bacteria Mod A Hyaline Casts 4 H Urine Mucus Few A 11/21/21 15:34 RBC 3.76 L Hgb 12.9 L Hct 38.2 L MCV 101.6 H MCH 34.3 H Neut % (Auto) 80.4 H Lymph % (Auto) 8.5 L Lymph # (Auto) 0.61 L VBG Lactic Acid Sodium Chloride Carbon Dioxide BUN Glucose Hemoglobin A1c Phosphorus Total Bilirubin AST Alkaline Phosphatase Procalcitonin Urine Appearance Urine Protein Urine Glucose (UA) Ur Leukocyte Esterase Urine WBC Urine Bacteria Hyaline Casts Urine Mucus Meds: Medications Acetaminophen (Acetaminophen 325 Mg Tablet) 650 mg PO Q6HP PRN; Protocol PRN Reason: Per Pain Protocol/Fever > 101 Last Admin: 11/21/21 20:25 Dose: 650 mg Documented by: Albuterol/Ipratropium (Ipratropium/Albuterol 3 Ml Ampul.Neb) 3 ml NEB Q4HRT PRN PRN Reason: Tachyarrhythmias Aspirin (Aspirin 81 Mg Tab.Chew) 81 mg PO DAILY [facility] Last Admin: 11/22/21 09:10 Dose: 81 mg Documented by: Ceftriaxone Sodium (Ceftriaxone 1 Gm Vial) 1 gm IV DAILY [facility] Last Admin: 11/22/21 09:11 Dose: 1 gm Documented by: Dextrose (Dextrose 50% 50 Ml Vial) 0 ml IV UD PRN PRN Reason: Hypoglycemia Diagnostic Test (Pha) (Accu-Chek 1 Each Strip) 1 each FS ACHS [facility] Last Admin: 11/22/21 08:06 Dose: 1 each Documented by: Digoxin (Digoxin 125 Mcg Tablet) 0.25 mcg PO Q48H [facility] Docusate Sodium (Docusate Sodium 100 Mg Capsule) 100 mg PO BID [facility] Last Admin: 11/22/21 09:10 Dose: 100 mg Documented by: Enoxaparin Sodium (Enoxaparin 40 Mg/0.4 Ml Syringe) 40 mg SQ DAILY [facility] Last Admin: 11/22/21 09:10 Dose: 40 mg Documented by: Fish Oil (Fish Oil 1,000 Mg Capsule) 1,000 mg PO DAILY [facility] Last Admin: 11/22/21 09:10 Dose: 1,000 mg Documented by: Glipizide (Glipizide 5 Mg Tablet) 5 mg PO ACB [facility] Last Admin: 11/22/21 08:06 Dose: 5 mg Documented by: Glucose (Dextrose 31 Gm Oral.Susp) 15 gm PO PRN PRN PRN Reason: Hypoglycemia Hydroxyurea (Hydroxyurea 500 Mg Capsule) 500 mg PO BID [facility] Last Admin: 11/22/21 09:10 Dose: 500 mg Documented by: Sodium Chloride (Sodium Chloride 0.9%) 1,000 mls @ 75 mls/hr IV .[id number] [facility] Last Admin: 11/22/21 09:13 Dose: 75 mls/hr Documented by: Potassium Phosphate 20 meq/ (Dextrose) 254.5455 mls @ 127.273 mls/hr IV ONCE ONE Stop: 11/22/21 11:41 Insulin Human Lispro (Insulin Lispro 1 Unit/0.01 Ml Unit) 0 unit SQ ACHS [facility]; Protocol Last Admin: 11/22/21 08:06 Dose: 4 units Documented by: Iron Carb/Multivit/Grant/Folic Acid (Multivit,Ther Iron,Ca,Fa & Min 1 Tablet) 1 tab PO DAILY [facility] Last Admin: 11/22/21 09:10 Dose: 1 tab Documented by: Lactulose (Lactulose 20 Gm/30 Ml Oral.Jessica) 10 gm PO DAILYP PRN PRN Reason: Constipation Ondansetron HCl (Ondansetron 4 Mg/2 Ml Vial) 4 mg IV Q4HP PRN; Protocol PRN Reason: Nausea And Vomiting Pneumococcal Polyvalent Vaccine (Pneumococcal 23-Lianna P-Sac Vac 0.5 Ml Syringe) 0.5 ml IM .ONCE ONE Stop: 11/23/21 10:01 Senna (Sennosides 1 Tablet) 2 tab PO HSP PRN PRN Reason: Constipation Sodium Chloride (0.9 % Sodium Chloride 10 Ml Syringe) 10 ml IV Q8 [facility] Last Admin: 11/22/21 04:40 Dose: Not Given Documented by: Throat Lozenges (Benzocaine/Menthol 1 Lozenge) 1 lozenge PO PRN PRN PRN Reason: Sore Throat Vitamin D (Vitamin D3 25 Mcg Tablet) 50 mcg PO DAILY [facility] Last Admin: 11/22/21 09:11 Dose: 50 mcg Documented by: A/P Assessment and plan (1) Acute UTI: Status: Acute (2) Diabetes mellitus, type II: Status: Chronic (3) Bladder cancer: Status: Resolved Comment: 1999 with urostomy bag (4) Dementia: Status: Chronic (5) Acute hyponatremia: Status: Acute (6) Delirium: Status: Acute (7) Thrombocythemia: Status: Acute (8) Anemia, macrocytic: Status: Acute (9) Essential hypertension: Status: Acute (10) Hypokalemia: Status: Acute (11) Hypophosphatemia: Status: Acute Narrative A/P Narrative: Assessment and Plans: 1. UTI with associated acute delirium, in the context of h/o bladder cancer s/p urostomy placement: Inpatient PCU telemetry Serial lactic acid Procalcitonin level Blood culture, no growth to date Urine culture, no growth to date cbc w/ auto diff in the morning to trend WBC level Rocephin s/p IV fluid bolus given in the ED, to be followed by NS@75cc/hr Tylenol PRN fever Urostomy bag exchanged in the ED Physical therapy Occupational therapy 2. Acute hyponatremia: Serum sodium level 124-->132 s/p IV fluid bolus given in the ED, to be followed by NS@75cc/hr Goal of correction 8-10 point over the first 24 hour to avoid over correction with associated neurological consequences such as Central [place] Myelynolysis BMP q6hr 3. T2DM; HgA1c 6.3 Hold Metformin Glipizide Medium scale SSI AC HS Accu Chek AC HS Hypoglycemia protocol Diabetic diet 4. Permanent atrial fibrillation: [id number] score of 3, not on anticoagulation therapy due to increased fall risk and recent fall(s) Digoxin 5. Thrombocythemia: Hydroxyurea 6. Dementia: Continue to monitor, treat overlapping delirium with IV fluid and antibiotics 7. Macrocytic hyperchromic anemia: cbc w/ auto diff in the morning to trend H/H 8. Essential HTN: Currently normotensive 9. Hypokalemia/hypophosphatemia: Potassium phosphate IV replacement CMP in the morning to trend serum potassium and phosphate level Also check serum Mg level and replace if needed GI ppx: not currently indicated DVT ppx: Lovenox Code status: Full Prognosis: guarded Disposition: inpatient PCU ; PT OT Time Spent With Patient Time: Total time spent is greater than 50% in coordination of care (as documented) at patient's floor/unit and/or counseling patient: Total time spent with greater than 50% in coordination of care (as documented) at patient's floor/unit and/or counseling patient:: Greater than 35 minutes QUALITY VTE Deep Vein Thrombosis/Pulmonary Embolism Present on Admission: No
[2021-11-22] MEDS ORDERED: POTASSIUM PHOSPHATE 20 MEQ in DEXTROSE 5% IN WATER 250 ML IV ONE (10:00)
[2021-11-22] MEDS: ACETAMINOPHEN 325 MG TABLET PO PRN ×2 (14:17→23:12)
[2021-11-22 15:03] LABS: Blood Urea Nitrogen 28 mg/dL (8-23); Calcium 9.1 mg/dL (8.6-10.4); Carbon Dioxide 23 mmol/L (22-30); Chloride 96 mmol/L (96-108); Glomerular Filtration Rate 94; Glucose 139 mg/dL (70-105)
[2021-11-22 19:03] LABS: ALT/SGPT 43 U/L (<40); AST/SGOT 63 U/L (<40); Albumin 3.4 gm/dL (3.2-5.2); Albumin/Globulin Ratio 1.1 (1.0-2.3); Alkaline Phosphatase 41 U/L (39-117); Bilirubin,Total 0.8 mg/dL (0.1-1.0); Blood Urea Nitrogen 26 mg/dL (8-23); Calcium 8.9 mg/dL (8.6-10.4); Carbon Dioxide 21 mmol/L (22-30); Chloride 95 mmol/L (96-108); Globulin 3.1 gm/dL (2.2-3.7); Glomerular Filtration Rate 89; Glucose 197 mg/dL (70-105)
[2021-11-23 01:49] LABS: Blood Urea Nitrogen 25 mg/dL (8-23); Carbon Dioxide 20 mmol/L (22-30); Chloride 96 mmol/L (96-108); Glomerular Filtration Rate 101; Glucose 124 mg/dL (70-105)
[2021-11-23] MEDS: 0.9 % SODIUM CHLORIDE 10 ML SYRINGE IV SCH ×3 (04:20→21:26)
[2021-11-23 06:31] LABS: Basophils # (Auto) 0.02 K/mcL (0.00-0.30); Basophils % (Auto) 0.3 % (0.0-2.0); Eosinophils # (Auto) 0.04 K/mcL (0.00-0.70); Eosinophils % (Auto) 0.6 % (0.0-7.0); Hematocrit 34.2 % (40.1-51.0); Hemoglobin 11.4 g/dL (13.7-17.5); Lymphocytes # (Auto) 0.64 K/mcL (1.50-4.80); Lymphocytes % (Auto) 9.6 % (15.5-49.0); Mean Cell Volume 102.1 fL (80.0-100.0); Mean Corpuscular HGB Conc 33.3 g/dL (31.0-36.0); Monocytes # (Auto) 0.68 K/mcL (0.10-0.90); Monocytes % (Auto) 10.2 % (1.0-12.0); Neutrophils % (Auto) 79.3 % (38.0-78.0); Platelet Count 269 K/mcL (140-440); RBC 3.35 M/mcL (4.63-6.08); WBC 6.6 K/mcL (4.5-11.0)
[2021-11-23 07:07] LABS: Phosphorous 1.5 mg/dL (2.5-4.5)
[2021-11-23 07:12] LABS: Blood Urea Nitrogen 23 mg/dL (8-23); Calcium 9.2 mg/dL (8.6-10.4); Carbon Dioxide 23 mmol/L (22-30); Chloride 97 mmol/L (96-108); Glomerular Filtration Rate 101; Glucose 134 mg/dL (70-105)
[2021-11-23] MEDS: glipiZIDE 5 MG TABLET PO SCH (07:51)
[2021-11-23] MEDS: MULTIVIT,THER IRON,CA,FA & MIN 1 TABLET PO SCH (07:51)
[2021-11-23] MEDS: FISH OIL 1,000 MG CAPSULE PO SCH (07:51)
[2021-11-23] MEDS: INSULIN LISPRO 1 UNIT/0.01 ML UNIT SQ SCH ×4 (07:51→21:32)
[2021-11-23] MEDS: DOCUSATE SODIUM 100 MG CAPSULE PO SCH ×2 (07:51→21:26)
[2021-11-23] MEDS: VITAMIN D3 25 MCG TABLET PO SCH (07:51)
[2021-11-23] MEDS: cefTRIAXone 1 GM VIAL IV SCH (07:51)
[2021-11-23] MEDS: ASPIRIN 81 MG TAB.CHEW PO SCH (07:52)
[2021-11-23] MEDS: ENOXAPARIN 40 MG/0.4 ML SYRINGE SQ SCH (07:52)
[2021-11-23] MEDS: HYDROXYUREA 500 MG CAPSULE PO SCH ×2 (08:00→21:32)
--- NOTE | 2021-11-23 09:21 | Internal Med Progress Note ---
SUBJECTIVE Subjective Patient information: Note initiated : 11/23/21 at 9:13 am Service Date, if different from initiated Date: [] Patient: Kwabena Fong 71 y/o M admitted on 11/21/21 for fall. Chief Complaint: [] Interval history: Mr. Fong is a 71 year old M h/o bladder cancer s/p urostomy, T2DM, dementia, atrial fibrillation not on anticoagulant, thrombocythemia, essential HTN, p/w altered mental status with increasing confusion for 2 days and fall yesterday. Urostomy bag was last exchanged "long time ago". Daughter noted monie ent to be more confused than his baseline for the last 2 days. Patient had a unwitnessed fall yesterday (11/20) and now is c/o left hip pain. History otherwise limited by patient's mental status as well as absence of caregiver/family at the bedside. Vital signs all within normal limits upon ED presentation. Labs significant for lack of leukocytosis with EBC 7.2. Lactic acid 2.4. Serum sodium level 124 with baseline 137. Blood glucose 240. UA suggestive of presence of UTI. CT head w/o contrast showed on acute intracranial pathologies. Hip/pelvis X ray no signs of bone fracture of joint dislocation. 11/22: Fever Tmax 38.3. Blood and urine cultures no growth to date. Serum sodium level 132. c/o mouth soreness. Denies any fever, chills, or sweating at the moment. Denies any pain or discomfort. Denies any nausea or vomiting. Denies dysuria. Good appetite. Denies general body weakness. Denies anxiety. Denies confusion. Continue Rocephin and Normal Saline infusion. 11/23: Afebrile overnight. Blood culture gram positive cocci in cluster in 1 bottle 1 set. Serum sodium 132. Denies any fever, chills, or sweating at the moment. Denies any pain or discomfort. Denies any nausea or vomiting. Denies dysuria. Good appetite. Denies general body weakness. Denies anxiety. Denies confusion. Continue Rocephin and Normal Saline infusion. Transfer to inpatient med surg. Constitutional Vitals: Vital Signs Temp Pulse Resp BP Pulse Ox 36.6 C 81 16 117/69 97 11/23/21 02:06 11/23/21 06:01 11/23/21 04:01 11/23/21 06:01 11/23/21 06:01 Period Temp Pulse Resp BP Sys/Bundy Pulse Ox Last 24 Hr 36.6 C-38.4 C 66-84 16-22 98-123/54-77 88-99 Intake and Output 11/22/21 11/23/21 11/23/21 21:59 05:59 13:59 Intake Total 1920 1480 960 Output Total 1700 450 375 Balance 220 1030 585 Weight 91.58 kg Intake & Output: Intake & Output 11/22/21 11/23/21 11/23/21 21:59 05:59 13:59 Intake Total 1920 1480 960 Output Total 1700 450 375 Balance 220 1030 585 Weight 91.58 kg Intake: IV 1000 Sodium Chloride 0.9% 1,000 ml @ 1000 75 mls/hr IV .[id number] [facility] Rx#: [id number] Oral 1920 480 960 Output: Void Amount 1700 450 375 Other: Meal Dinner Percent of Meal Consumed 100% Feeding Ability Independent Urine Appearance Cloudy Cloudy Sediment Sediment Mucous Threads Urine Color Dark Yellow Dark Yellow Urine Odor Normal Stool Size Large Stool Color Brown Stool Consistency Soft Formed General appearance: average body habitus, cooperative and no acute distress Head Head exam: Present atraumatic and normal inspection Eye Eye exam: Present normal appearance ENT ENT exam: Present mucous membranes moist, normal exam and normal external ear exam Neck Neck exam: Present normal inspection Respiratory Respiratory exam: Present normal respiratory exam Cardiovascular Cardiovascular exam: Present irregular rhythm GI/Abdominal GI/Abdominal exam: Present normal bowel sounds Additional comments: Urostomy bag in place Back Exam Back exam: Present normal inspection Neurological Exam Neurological exam: Present alert and oriented X3 Skin Skin exam: Present intact and warm OBJ DATA Labs CBC & Chem 7: 11/23/21 05:45 11/23/21 05:45 Labs: Abnormal Lab Results 11/23/21 11/23/21 11/23/21 05:45 05:45 05:44 RBC 3.35 L Hgb 11.4 L Hct 34.2 L MCV 102.1 H MCH Neut % (Auto) 79.3 H Lymph % (Auto) 9.6 L Lymph # (Auto) 0.64 L VBG Lactic Acid Sodium 132 L Chloride Carbon Dioxide BUN Creatinine 0.6 L Glucose 134 H Hemoglobin A1c Phosphorus 1.5 L Total Bilirubin AST ALT Alkaline Phosphatase Procalcitonin Urine Appearance Urine Protein Urine Glucose (UA) Ur Leukocyte Esterase Urine WBC Urine Bacteria Hyaline Casts Urine Mucus 11/23/21 11/22/21 11/22/21 00:18 18:05 11:54 RBC Hgb Hct MCV MCH Neut % (Auto) Lymph % (Auto) Lymph # (Auto) VBG Lactic Acid Sodium 128 L 130 L 132 L Chloride 95 L Carbon Dioxide 20 L 21 L BUN 25 H 26 H 28 H Creatinine 0.6 L Glucose 124 H 197 H 139 H Hemoglobin A1c Phosphorus Total Bilirubin AST 63 H ALT 43 H Alkaline Phosphatase Procalcitonin Urine Appearance Urine Protein Urine Glucose (UA) Ur Leukocyte Esterase Urine WBC Urine Bacteria Hyaline Casts Urine Mucus 11/22/21 11/22/21 11/22/21 05:43 05:43 05:43 RBC 3.54 L Hgb 12.1 L Hct 36.3 L MCV 102.5 H MCH 34.2 H Neut % (Auto) 84.1 H Lymph % (Auto) 5.2 L Lymph # (Auto) 0.39 L VBG Lactic Acid Sodium 132 L Chloride Carbon Dioxide 21 L BUN 28 H Creatinine Glucose 191 H Hemoglobin A1c Phosphorus 0.7 L Total Bilirubin AST ALT Alkaline Phosphatase Procalcitonin Urine Appearance Urine Protein Urine Glucose (UA) Ur Leukocyte Esterase Urine WBC Urine Bacteria Hyaline Casts Urine Mucus 11/22/21 11/21/21 11/21/21 00:18 20:12 20:12 RBC Hgb Hct MCV MCH Neut % (Auto) Lymph % (Auto) Lymph # (Auto) VBG Lactic Acid Sodium 131 L 128 L Chloride 94 L 94 L Carbon Dioxide 21 L BUN 30 H 28 H Creatinine Glucose 142 H 205 H Hemoglobin A1c 6.3 H Phosphorus Total Bilirubin AST 58 H ALT Alkaline Phosphatase 38 L Procalcitonin 0.69 H Urine Appearance Urine Protein Urine Glucose (UA) Ur Leukocyte Esterase Urine WBC Urine Bacteria Hyaline Casts Urine Mucus 11/21/21 11/21/21 11/21/21 16:24 15:34 15:34 RBC Hgb Hct MCV MCH Neut % (Auto) Lymph % (Auto) Lymph # (Auto) VBG Lactic Acid 2.4 H Sodium 124 L Chloride 88 L Carbon Dioxide BUN 33 H Creatinine Glucose 240 H Hemoglobin A1c Phosphorus Total Bilirubin 1.3 H AST 61 H ALT Alkaline Phosphatase Procalcitonin Urine Appearance Hazy A Urine Protein 100 A Urine Glucose (UA) 50 A Ur Leukocyte Esterase 75 A Urine WBC 44 H Urine Bacteria Mod A Hyaline Casts 4 H Urine Mucus Few A 11/21/21 15:34 RBC 3.76 L Hgb 12.9 L Hct 38.2 L MCV 101.6 H MCH 34.3 H Neut % (Auto) 80.4 H Lymph % (Auto) 8.5 L Lymph # (Auto) 0.61 L VBG Lactic Acid Sodium Chloride Carbon Dioxide BUN Creatinine Glucose Hemoglobin A1c Phosphorus Total Bilirubin AST ALT Alkaline Phosphatase Procalcitonin Urine Appearance Urine Protein Urine Glucose (UA) Ur Leukocyte Esterase Urine WBC Urine Bacteria Hyaline Casts Urine Mucus Meds: Medications Acetaminophen (Acetaminophen 325 Mg Tablet) 650 mg PO Q6HP PRN; Protocol PRN Reason: Per Pain Protocol/Fever > 101 Last Admin: 11/22/21 23:12 Dose: 650 mg Documented by: Albuterol/Ipratropium (Ipratropium/Albuterol 3 Ml Ampul.Neb) 3 ml NEB Q4HRT PRN PRN Reason: Tachyarrhythmias Aspirin (Aspirin 81 Mg Tab.Chew) 81 mg PO DAILY [facility] Last Admin: 11/23/21 07:52 Dose: 81 mg Documented by: Ceftriaxone Sodium (Ceftriaxone 1 Gm Vial) 1 gm IV DAILY [facility] Last Admin: 11/23/21 07:51 Dose: 1 gm Documented by: Dextrose (Dextrose 50% 50 Ml Vial) 0 ml IV UD PRN PRN Reason: Hypoglycemia Diagnostic Test (Pha) (Accu-Chek 1 Each Strip) 1 each FS ACHS [facility] Last Admin: 11/23/21 07:52 Dose: 1 each Documented by: Digoxin (Digoxin 125 Mcg Tablet) 0.25 mcg PO Q48H [facility] Docusate Sodium (Docusate Sodium 100 Mg Capsule) 100 mg PO BID [facility] Last Admin: 11/23/21 07:51 Dose: 100 mg Documented by: Enoxaparin Sodium (Enoxaparin 40 Mg/0.4 Ml Syringe) 40 mg SQ DAILY [facility] Last Admin: 11/23/21 07:52 Dose: 40 mg Documented by: Fish Oil (Fish Oil 1,000 Mg Capsule) 1,000 mg PO DAILY [facility] Last Admin: 11/23/21 07:51 Dose: 1,000 mg Documented by: Glipizide (Glipizide 5 Mg Tablet) 5 mg PO ACB [facility] Last Admin: 11/23/21 07:51 Dose: 5 mg Documented by: Glucose (Dextrose 31 Gm Oral.Susp) 15 gm PO PRN PRN PRN Reason: Hypoglycemia Hydroxyurea (Hydroxyurea 500 Mg Capsule) 500 mg PO BID [facility] Last Admin: 11/23/21 08:00 Dose: 500 mg Documented by: Sodium Chloride (Sodium Chloride 0.9%) 1,000 mls @ 75 mls/hr IV .[id number] [facility] Last Admin: 11/23/21 00:00 Dose: 75 mls/hr Documented by: Insulin Human Lispro (Insulin Lispro 1 Unit/0.01 Ml Unit) 0 unit SQ ACHS [facility]; Protocol Last Admin: 11/23/21 07:51 Dose: 2 units Documented by: Iron Carb/Multivit/[place]/Folic Acid (Multivit,Ther Iron,Ca,Fa & Min 1 Tablet) 1 tab PO DAILY [facility] Last Admin: 11/23/21 07:51 Dose: 1 tab Documented by: Lactulose (Lactulose 20 Gm/30 Ml Oral.Jessica) 10 gm PO DAILYP PRN PRN Reason: Constipation Ondansetron HCl (Ondansetron 4 Mg/2 Ml Vial) 4 mg IV Q4HP PRN; Protocol PRN Reason: Nausea And Vomiting Pneumococcal Polyvalent Vaccine (Pneumococcal 23-[place] P-Sac Vac 0.5 Ml Syringe) 0.5 ml IM .ONCE ONE Stop: 11/23/21 10:01 Senna (Sennosides 1 Tablet) 2 tab PO HSP PRN PRN Reason: Constipation Sodium Chloride (0.9 % Sodium Chloride 10 Ml Syringe) 10 ml IV Q8 [facility] Last Admin: 11/23/21 04:20 Dose: Not Given Documented by: Throat Lozenges (Benzocaine/Menthol 1 Lozenge) 1 lozenge PO PRN PRN PRN Reason: Sore Throat Vitamin D (Vitamin D3 25 Mcg Tablet) 50 mcg PO DAILY [facility] Last Admin: 11/23/21 07:51 Dose: 50 mcg Documented by: A/P Assessment and plan (1) Acute UTI: Status: Acute (2) Diabetes mellitus, type II: Status: Chronic (3) Bladder cancer: Status: Resolved Comment: 1999 with urostomy bag (4) Dementia: Status: Chronic (5) Acute hyponatremia: Status: Acute (6) Delirium: Status: Acute (7) Thrombocythemia: Status: Acute (8) Anemia, macrocytic: Status: Acute (9) Essential hypertension: Status: Acute (10) Hypokalemia: Status: Acute (11) Hypophosphatemia: Status: Acute (12) Gram-positive cocci bacteremia: Status: Acute Narrative A/P Narrative: Assessment and Plans: 1. UTI with associated acute delirium, in the context of h/o bladder cancer s/p urostomy placement: Transfer to inpatient med surg Serial lactic acid Procalcitonin level 0.69 elevated Blood culture, gram positive cocci in cluster 1 set 1 bottle Urine culture, no growth to date cbc w/ auto diff in the morning to trend WBC level Rocephin s/p IV fluid bolus given in the ED, to be followed by NS@75cc/hr Tylenol PRN fever Urostomy bag exchanged in the ED Physical therapy Occupational therapy 2. Acute hyponatremia: Serum sodium level 124-->132 s/p IV fluid bolus given in the ED, to be followed by NS@75cc/hr Goal of correction 8-10 point over the first 24 hour to avoid over correction with associated neurological consequences such as [place] Myelynolysis 3. T2DM; HgA1c 6.3 Hold Metformin Glipizide Medium scale SSI AC HS Accu Chek AC HS Hypoglycemia protocol Diabetic diet 4. Permanent atrial fibrillation: [id number] score of 3, not on anticoagulation therapy due to increased fall risk and recent fall(s) Digoxin 5. Thrombocythemia: Hydroxyurea 6. Dementia: Continue to monitor, treat overlapping delirium with IV fluid and antibiotics 7. Macrocytic hyperchromic anemia: cbc w/ auto diff in the morning to trend H/H 8. Essential HTN: Currently normotensive 9. Hypokalemia/hypophosphatemia: Potassium phosphate IV replacement CMP in the morning to trend serum potassium and phosphate level Also check serum Mg level and replace if needed 10. Gram positive cocci bacteremia: DDx: skin contamination Blood culture from admission showing gram positive cocci in cluster 1 set 1 bottle Repeat blood culture X2 today cbc w/ auto diff in the AM to trend WBC GI ppx: not currently indicated DVT ppx: Lovenox Code status: Full Prognosis: guarded Disposition: inpatient med surg ; PT OT Time Spent With Patient Time: Total time spent is greater than 50% in coordination of care (as documented) at patient's floor/unit and/or counseling patient: Total time spent with greater than 50% in coordination of care (as documented) at patient's floor/unit and/or counseling patient:: Greater than 35 minutes QUALITY VTE Deep Vein Thrombosis/Pulmonary Embolism Present on Admission: No
[2021-11-23] MEDS ORDERED: PNEUMOCOCCAL 23-VAL P-SAC VAC 0.5 ML SYRINGE IM ONE (10:00)
--- NOTE | 2021-11-23 11:15 | EKG ---
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 Measurements Intervals [place] Rate: 89 P: -58 HI: 236 QRS: -46 QRSD: 95 T: 86 QT: 315 QTc: 384 Interpretive Statements Sinus or ectopic atrial rhythm Atrial premature complex Prolonged HI interval Left anterior fascicular block Borderline repolarization abnormality Electronically Signed On 11-23-2021 11:15:42 PST by Camilo Mo M.D. /[email or web address]/[id number]
--- NOTE | 2021-11-23 11:16 | EKG ---
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 Measurements Intervals [place] Rate: 91 P: -68 FL: 77 QRS: -42 QRSD: 99 T: 39 QT: 355 QTc: 437 Interpretive Statements SINUS RHYTHM Electronically Signed On 11-23-2021 11:16:44 PST by Camilo Mo M.D. /[email or web address]/[id number]/[id number]
[2021-11-23] MEDS ORDERED: DIGOXIN 125 MCG TABLET PO SCH (14:00)
[2021-11-23] MEDS: 0.9 % SODIUM CHLORIDE 1,000 ML IV SCH ×3 (17:22→18:55)
[2021-11-23] MEDS ORDERED: DIGOXIN 125 MCG TABLET PO ONE (20:30)
[2021-11-23] MEDS ORDERED: NON FORMULARY MEDICATION 1 DOSE MISCELL (Digoxin 250 mcg (0.25 mg) tablet) SCH (20:45)
[2021-11-23 22:08] LABS: ALT/SGPT 44 U/L (<40); AST/SGOT 49 U/L (<40); Albumin 3.1 gm/dL (3.2-5.2); Albumin/Globulin Ratio 0.9 (1.0-2.3); Alkaline Phosphatase 49 U/L (39-117); Bilirubin,Total 0.6 mg/dL (0.1-1.0); Blood Urea Nitrogen 20 mg/dL (8-23); Calcium 9.1 mg/dL (8.6-10.4); Carbon Dioxide 23 mmol/L (22-30); Chloride 94 mmol/L (96-108); Globulin 3.3 gm/dL (2.2-3.7); Glomerular Filtration Rate 101; Glucose 216 mg/dL (70-105)
[2021-11-24] MEDS: 0.9 % SODIUM CHLORIDE 1,000 ML IV SCH ×3 (01:41→16:14)
[2021-11-24] MEDS: 0.9 % SODIUM CHLORIDE 10 ML SYRINGE IV SCH ×3 (05:57→22:30)
[2021-11-24 07:46] LABS: Basophils # (Auto) 0.03 K/mcL (0.00-0.30); Basophils % (Auto) 0.6 % (0.0-2.0); Eosinophils # (Auto) 0.12 K/mcL (0.00-0.70); Eosinophils % (Auto) 2.4 % (0.0-7.0); Hematocrit 33.7 % (40.1-51.0); Hemoglobin 11.2 g/dL (13.7-17.5); Lymphocytes # (Auto) 1.03 K/mcL (1.50-4.80); Mean Cell Volume 101.5 fL (80.0-100.0); Mean Corpuscular HGB Conc 33.2 g/dL (31.0-36.0); Mean Platelet Volume 10.4 fL (7.4-10.4); Monocytes # (Auto) 0.52 K/mcL (0.10-0.90); Monocytes % (Auto) 10.5 % (1.0-12.0); Platelet Count 321 K/mcL (140-440); RBC 3.32 M/mcL (4.63-6.08); Red Cell Distribution Width 13.7 % (11.5-14.5); WBC 4.9 K/mcL (4.5-11.0)
[2021-11-24 08:02] LABS: Phosphorous 1.8 mg/dL (2.5-4.5)
[2021-11-24 08:25] LABS: Digoxin < 0.3 ng/mL
[2021-11-24 08:48] LABS: Lymphocytes % (Auto) 20.9 % (15.5-49.0); Neutrophils % (Auto) 65.6 % (38.0-78.0)
[2021-11-24] MEDS: VITAMIN D3 25 MCG TABLET PO SCH (09:37)
[2021-11-24] MEDS: FISH OIL 1,000 MG CAPSULE PO SCH (09:37)
[2021-11-24] MEDS: cefTRIAXone 1 GM VIAL IV SCH (09:37)
[2021-11-24] MEDS: DOCUSATE SODIUM 100 MG CAPSULE PO SCH ×2 (09:37→22:29)
[2021-11-24] MEDS: ASPIRIN 81 MG TAB.CHEW PO SCH (09:37)
[2021-11-24] MEDS: MULTIVIT,THER IRON,CA,FA & MIN 1 TABLET PO SCH (09:37)
[2021-11-24] MEDS: HYDROXYUREA 500 MG CAPSULE PO SCH ×2 (09:38→22:37)
[2021-11-24] MEDS: INSULIN LISPRO 1 UNIT/0.01 ML UNIT SQ SCH ×4 (09:38→22:28)
[2021-11-24] MEDS: glipiZIDE 5 MG TABLET PO SCH (09:38)
[2021-11-24] MEDS ORDERED: PNEUMOCOCCAL 23-VAL P-SAC VAC 0.5 ML SYRINGE IM ONE (10:00)
[2021-11-24] MEDS: ENOXAPARIN 40 MG/0.4 ML SYRINGE SQ SCH (10:30)
--- NOTE | 2021-11-24 11:05 | Internal Med Progress Note ---
SUBJECTIVE Subjective Patient information: Note initiated : 11/24/21 at 10:58 am Service Date, if different from initiated Date: [] Patient: Kwabena Fong 71 y/o M admitted on 11/21/21 for fall. Chief Complaint: [] Interval history: Mr. Fong is a 71 year old M h/o bladder cancer s/p urostomy, T2DM, dementia, atrial fibrillation not on anticoagulant, thrombocythemia, essential HTN, p/w altered mental status with increasing confusion for 2 days and fall yesterday. Urostomy bag was last exchanged "long time ago". Daughter noted willis tai to be more confused than his baseline for the last 2 days. Patient had a unwitnessed fall yesterday (11/20) and now is c/o left hip pain. History otherwise limited by patient's mental status as well as absence of caregiver/family at the bedside. Vital signs all within normal limits upon ED presentation. Labs significant for lack of leukocytosis with EBC 7.2. Lactic acid 2.4. Serum sodium level 124 with baseline 137. Blood glucose 240. UA suggestive of presence of UTI. CT head w/o contrast showed on acute intracranial pathologies. Hip/pelvis X ray no signs of bone fracture of joint dislocation. 11/22: Fever Tmax 38.3. Blood and urine cultures no growth to date. Serum sodium level 132. c/o mouth soreness. Denies any fever, chills, or sweating at the moment. Denies any pain or discomfort. Denies any nausea or vomiting. Denies dysuria. Good appetite. Denies general body weakness. Denies anxiety. Denies confusion. Continue Rocephin and Normal Saline infusion. 11/23: Afebrile overnight. Blood culture gram positive cocci in cluster in 1 bottle 1 set. Serum sodium 132. Denies any fever, chills, or sweating at the moment. Denies any pain or discomfort. Denies any nausea or vomiting. Denies dysuria. Good appetite. Denies general body weakness. Denies anxiety. Denies confusion. Continue Rocephin and Normal Saline infusion. Transfer to inpatient med surg. 11/24: Afebrile overnight. Blood culture: coagulase negative staph; urine culture: E coli and K pneumoniae. Repeat blood culture on 11/23: no growth to date. Serum sodium 128. Denies any fever, chills, or sweating at the moment. Denies any pain or discomfort. Denies any nausea or vomiting. Denies dysuria. Good appetite. Denies general body weakness. Denies anxiety. Denies confusion. Continue Rocephin and Normal Saline infusion. Patient states that he is checking himself out at 230pm this afternoon. Constitutional Vitals: Vital Signs Temp Pulse Resp BP Pulse Ox 37.2 C 74 22 121/76 94 11/24/21 07:11 11/24/21 07:11 11/24/21 07:11 11/24/21 07:11 11/24/21 07:11 Period Temp Pulse Resp BP Sys/Bundy Pulse Ox Last 24 Hr 36.5 C-37.7 C 74-92 20-24 114-128/69-77 90-96 Intake and Output 11/23/21 11/24/21 11/24/21 21:59 05:59 13:59 Intake Total 639 337 6007 Output Total 600 350 600 Balance -130 -240 1000 Weight 94.211 kg Intake & Output: Intake & Output 11/23/21 11/24/21 11/24/21 21:59 05:59 13:59 Intake Total 759 764 7359 Output Total 600 350 600 Balance -130 -240 1000 Weight 94.211 kg Intake: IV 1000 Sodium Chloride 0.9% 1,000 ml @ 1000 75 mls/hr IV .[id number] [facility] Rx#: [id number] Oral 470 110 600 Output: Urine Catheter Amount 600 350 175 Void Amount 425 Other: Meal Breakfast Percent of Meal Consumed 100% Feeding Ability Assist with Tray Set Up Urine Appearance Cloudy Cloudy Cloudy Urine Color Dark Yellow Bright Yellow Straw Urine Odor Normal Normal Stool Size Moderate Small Stool Color Brown Brown Stool Consistency Liquid Liquid Loose # Voids 1 # Bowel Movements 1 # of times incontinent of 1 1 Bowels General appearance: average body habitus, cooperative and no acute distress Head Head exam: Present atraumatic and normal inspection Eye Eye exam: Present normal appearance ENT ENT exam: Present mucous membranes moist, normal exam and normal external ear exam Neck Neck exam: Present normal inspection Respiratory Respiratory exam: Present normal respiratory exam Cardiovascular Cardiovascular exam: Present irregular rhythm GI/Abdominal GI/Abdominal exam: Present normal bowel sounds Additional comments: Urostomy bag in place Back Exam Back exam: Present normal inspection Neurological Exam Neurological exam: Present alert and oriented X3 Skin Skin exam: Present intact and warm OBJ DATA Labs CBC & Chem 7: 11/24/21 05:42 11/23/21 19:51 Labs: Abnormal Lab Results 11/24/21 11/24/21 11/23/21 05:42 05:42 19:51 RBC 3.32 L Hgb 11.2 L Hct 33.7 L MCV 101.5 H MCH Neut % (Auto) Lymph % (Auto) Lymph # (Auto) 1.03 L VBG Lactic Acid Sodium 128 L Chloride 94 L Carbon Dioxide BUN Creatinine 0.6 L Glucose 216 H Hemoglobin A1c Phosphorus 1.8 L Total Bilirubin AST 49 H ALT 44 H Alkaline Phosphatase Albumin 3.1 L Albumin/Globulin Ratio 0.9 L Procalcitonin Urine Appearance Urine Protein Urine Glucose (UA) Ur Leukocyte Esterase Urine WBC Urine Bacteria Hyaline Casts Urine Mucus 11/23/21 11/23/21 11/23/21 05:45 05:45 05:44 RBC 3.35 L Hgb 11.4 L Hct 34.2 L MCV 102.1 H MCH Neut % (Auto) 79.3 H Lymph % (Auto) 9.6 L Lymph # (Auto) 0.64 L VBG Lactic Acid Sodium 132 L Chloride Carbon Dioxide BUN Creatinine 0.6 L Glucose 134 H Hemoglobin A1c Phosphorus 1.5 L Total Bilirubin AST ALT Alkaline Phosphatase Albumin Albumin/Globulin Ratio Procalcitonin Urine Appearance Urine Protein Urine Glucose (UA) Ur Leukocyte Esterase Urine WBC Urine Bacteria Hyaline Casts Urine Mucus 11/23/21 11/22/21 11/22/21 00:18 18:05 11:54 RBC Hgb Hct MCV MCH Neut % (Auto) Lymph % (Auto) Lymph # (Auto) VBG Lactic Acid Sodium 128 L 130 L 132 L Chloride 95 L Carbon Dioxide 20 L 21 L BUN 25 H 26 H 28 H Creatinine 0.6 L Glucose 124 H 197 H 139 H Hemoglobin A1c Phosphorus Total Bilirubin AST 63 H ALT 43 H Alkaline Phosphatase Albumin Albumin/Globulin Ratio Procalcitonin Urine Appearance Urine Protein Urine Glucose (UA) Ur Leukocyte Esterase Urine WBC Urine Bacteria Hyaline Casts Urine Mucus 11/22/21 11/22/21 11/22/21 05:43 05:43 05:43 RBC 3.54 L Hgb 12.1 L Hct 36.3 L MCV 102.5 H MCH 34.2 H Neut % (Auto) 84.1 H Lymph % (Auto) 5.2 L Lymph # (Auto) 0.39 L VBG Lactic Acid Sodium 132 L Chloride Carbon Dioxide 21 L BUN 28 H Creatinine Glucose 191 H Hemoglobin A1c Phosphorus 0.7 L Total Bilirubin AST ALT Alkaline Phosphatase Albumin Albumin/Globulin Ratio Procalcitonin Urine Appearance Urine Protein Urine Glucose (UA) Ur Leukocyte Esterase Urine WBC Urine Bacteria Hyaline Casts Urine Mucus 11/22/21 11/21/21 11/21/21 00:18 20:12 20:12 RBC Hgb Hct MCV MCH Neut % (Auto) Lymph % (Auto) Lymph # (Auto) VBG Lactic Acid Sodium 131 L 128 L Chloride 94 L 94 L Carbon Dioxide 21 L BUN 30 H 28 H Creatinine Glucose 142 H 205 H Hemoglobin A1c 6.3 H Phosphorus Total Bilirubin AST 58 H ALT Alkaline Phosphatase 38 L Albumin Albumin/Globulin Ratio Procalcitonin 0.69 H Urine Appearance Urine Protein Urine Glucose (UA) Ur Leukocyte Esterase Urine WBC Urine Bacteria Hyaline Casts Urine Mucus 11/21/21 11/21/21 11/21/21 16:24 15:34 15:34 RBC Hgb Hct MCV MCH Neut % (Auto) Lymph % (Auto) Lymph # (Auto) VBG Lactic Acid 2.4 H Sodium 124 L Chloride 88 L Carbon Dioxide BUN 33 H Creatinine Glucose 240 H Hemoglobin A1c Phosphorus Total Bilirubin 1.3 H AST 61 H ALT Alkaline Phosphatase Albumin Albumin/Globulin Ratio Procalcitonin Urine Appearance Hazy A Urine Protein 100 A Urine Glucose (UA) 50 A Ur Leukocyte Esterase 75 A Urine WBC 44 H Urine Bacteria Mod A Hyaline Casts 4 H Urine Mucus Few A 11/21/21 15:34 RBC 3.76 L Hgb 12.9 L Hct 38.2 L MCV 101.6 H MCH 34.3 H Neut % (Auto) 80.4 H Lymph % (Auto) 8.5 L Lymph # (Auto) 0.61 L VBG Lactic Acid Sodium Chloride Carbon Dioxide BUN Creatinine Glucose Hemoglobin A1c Phosphorus Total Bilirubin AST ALT Alkaline Phosphatase Albumin Albumin/Globulin Ratio Procalcitonin Urine Appearance Urine Protein Urine Glucose (UA) Ur Leukocyte Esterase Urine WBC Urine Bacteria Hyaline Casts Urine Mucus Meds: Medications Acetaminophen (Acetaminophen 325 Mg Tablet) 650 mg PO Q6HP PRN; Protocol PRN Reason: Per Pain Protocol/Fever > 101 Last Admin: 11/22/21 23:12 Dose: 650 mg Documented by: Albuterol/Ipratropium (Ipratropium/Albuterol 3 Ml Ampul.Neb) 3 ml NEB Q4HRT PRN PRN Reason: Tachyarrhythmias Aspirin (Aspirin 81 Mg Tab.Chew) 81 mg PO DAILY [facility] Last Admin: 11/24/21 09:37 Dose: 81 mg Documented by: Ceftriaxone Sodium (Ceftriaxone 1 Gm Vial) 1 gm IV DAILY [facility] Last Admin: 11/24/21 09:37 Dose: 1 gm Documented by: Dextrose (Dextrose 50% 50 Ml Vial) 0 ml IV UD PRN PRN Reason: Hypoglycemia Diagnostic Test (Pha) (Accu-Chek 1 Each Strip) 1 each FS ACHS [facility] Last Admin: 11/23/21 21:25 Dose: 1 each Documented by: Digoxin (Digoxin 125 Mcg Tablet) 500 mcg PO Q48@1400 [facility] Digoxin (Digoxin 125 Mcg Tablet) 750 mcg PO Q48@1400 [facility] Docusate Sodium (Docusate Sodium 100 Mg Capsule) 100 mg PO BID [facility] Last Admin: 11/24/21 09:37 Dose: 100 mg Documented by: Enoxaparin Sodium (Enoxaparin 40 Mg/0.4 Ml Syringe) 40 mg SQ DAILY [facility] Last Admin: 11/23/21 07:52 Dose: 40 mg Documented by: Fish Oil (Fish Oil 1,000 Mg Capsule) 1,000 mg PO DAILY [facility] Last Admin: 11/24/21 09:37 Dose: 1,000 mg Documented by: Glipizide (Glipizide 5 Mg Tablet) 5 mg PO ACB [facility] Last Admin: 11/24/21 09:38 Dose: 5 mg Documented by: Glucose (Dextrose 31 Gm Oral.Susp) 15 gm PO PRN PRN PRN Reason: Hypoglycemia Hydroxyurea (Hydroxyurea 500 Mg Capsule) 500 mg PO BID [facility] Last Admin: 11/24/21 09:38 Dose: 500 mg Documented by: Sodium Chloride (Sodium Chloride 0.9%) 1,000 mls @ 75 mls/hr IV .[id number] [facility] Last Admin: 11/24/21 09:44 Dose: 75 mls/hr Documented by: Insulin Human Lispro (Insulin Lispro 1 Unit/0.01 Ml Unit) 0 unit SQ ACHS [facility]; Protocol Last Admin: 11/24/21 09:38 Dose: Not Given Documented by: Iron Carb/Multivit/Mayes/Folic Acid (Multivit,Ther Iron,Ca,Fa & Min 1 Tablet) 1 tab PO DAILY [facility] Last Admin: 11/24/21 09:37 Dose: 1 tab Documented by: Lactulose (Lactulose 20 Gm/30 Ml Oral.Jessica) 10 gm PO DAILYP PRN PRN Reason: Constipation Ondansetron HCl (Ondansetron 4 Mg/2 Ml Vial) 4 mg IV Q4HP PRN; Protocol PRN Reason: Nausea And Vomiting Senna (Sennosides 1 Tablet) 2 tab PO HSP PRN PRN Reason: Constipation Sodium Chloride (0.9 % Sodium Chloride 10 Ml Syringe) 10 ml IV Q8 [facility] Last Admin: 11/24/21 05:57 Dose: Not Given Documented by: Throat Lozenges (Benzocaine/Menthol 1 Lozenge) 1 lozenge PO PRN PRN PRN Reason: Sore Throat Vitamin D (Vitamin D3 25 Mcg Tablet) 50 mcg PO DAILY [facility] Last Admin: 11/24/21 09:37 Dose: 50 mcg Documented by: A/P Assessment and plan (1) Acute UTI: Status: Acute (2) Diabetes mellitus, type II: Status: Chronic (3) Bladder cancer: Status: Resolved Comment: 1999 with urostomy bag (4) Dementia: Status: Chronic (5) Acute hyponatremia: Status: Acute (6) Delirium: Status: Acute (7) Thrombocythemia: Status: Acute (8) Anemia, macrocytic: Status: Acute (9) Essential hypertension: Status: Acute (10) Hypokalemia: Status: Acute (11) Hypophosphatemia: Status: Acute (12) Gram-positive cocci bacteremia: Status: Acute Narrative A/P Narrative: Assessment and Plans: 1. UTI with associated acute delirium, in the context of h/o bladder cancer s/p urostomy placement: Stays in inpatient med surg Serial lactic acid Procalcitonin level 0.69 elevated Blood culture, growing coagulase negative staph Urine culture, growing E coli and K pneumoniae cbc w/ auto diff in the morning to trend WBC level Rocephin s/p IV fluid bolus given in the ED, to be followed by NS@75cc/hr Tylenol PRN fever Urostomy bag exchanged in the ED Physical therapy Occupational therapy 2. Acute hyponatremia: Serum sodium level 128 s/p IV fluid bolus given in the ED, to be followed by NS@75cc/hr Goal of correction 8-10 point over the first 24 hour to avoid over correction with associated neurological consequences such as [place] Myelinolysis 3. T2DM; HgA1c 6.3 Hold Metformin Glipizide Medium scale SSI AC HS Accu Chek AC HS Hypoglycemia protocol Diabetic diet 4. Permanent atrial fibrillation: [id number] score of 3, not on anticoagulation therapy due to increased fall risk and recent fall(s) Digoxin 5. Thrombocythemia: Hydroxyurea 6. Dementia: Continue to monitor, treat overlapping delirium with IV fluid and antibiotics 7. Macrocytic hyperchromic anemia: cbc w/ auto diff in the morning to trend H/H 8. Essential HTN: Currently normotensive 9. Hypokalemia/hypophosphatemia: Potassium phosphate IV replacement CMP in the morning to trend serum potassium and phosphate level Also check serum Mg level and replace if needed 10. Gram positive cocci bacteremia: DDx: skin contamination Blood culture, growing coagulase negative staph Repeat blood culture on 11/23, no growth to date cbc w/ auto diff in the AM to trend WBC 2D echocardiogram Rocephin GI ppx: not currently indicated DVT ppx: Lovenox Code status: Full Prognosis: guarded Disposition: inpatient med surg ; PT OT Time Spent With Patient Time: Total time spent is greater than 50% in coordination of care (as documented) at patient's floor/unit and/or counseling patient: Total time spent with greater than 50% in coordination of care (as documented) at patient's floor/unit and/or counseling patient:: Greater than 35 minutes QUALITY VTE Deep Vein Thrombosis/Pulmonary Embolism Present on Admission: No
[2021-11-24 11:29] LABS: ALT/SGPT 42 U/L (<40); AST/SGOT 41 U/L (<40); Albumin/Globulin Ratio 0.9 (1.0-2.3); Alkaline Phosphatase 48 U/L (39-117); Bilirubin,Total 0.5 mg/dL (0.1-1.0); Blood Urea Nitrogen 15 mg/dL (8-23); Calcium 8.7 mg/dL (8.6-10.4); Carbon Dioxide 24 mmol/L (22-30); Chloride 96 mmol/L (96-108); Globulin 3.2 gm/dL (2.2-3.7); Glomerular Filtration Rate 101; Glucose 233 mg/dL (70-105)
[2021-11-24] MEDS ORDERED: DIGOXIN 125 MCG TABLET PO SCH (14:00)
[2021-11-25] MEDS: 0.9 % SODIUM CHLORIDE 1,000 ML IV SCH (01:35)
[2021-11-25] MEDS: 0.9 % SODIUM CHLORIDE 10 ML SYRINGE IV SCH ×2 (05:29→14:21)
[2021-11-25 06:49] LABS: Basophils # (Auto) 0.03 K/mcL (0.00-0.30); Basophils % (Auto) 0.7 % (0.0-2.0); Eosinophils % (Auto) 2.2 % (0.0-7.0); Hematocrit 33.1 % (40.1-51.0); Hemoglobin 10.9 g/dL (13.7-17.5); Lymphocytes # (Auto) 1.48 K/mcL (1.50-4.80); Mean Cell Volume 100.9 fL (80.0-100.0); Mean Corpuscular HGB Conc 32.9 g/dL (31.0-36.0); Mean Platelet Volume 9.8 fL (7.4-10.4); Monocytes # (Auto) 0.46 K/mcL (0.10-0.90); Monocytes % (Auto) 10.2 % (1.0-12.0); Neutrophils % (Auto) 54.2 % (38.0-78.0); Platelet Count 421 K/mcL (140-440); RBC 3.28 M/mcL (4.63-6.08); Red Cell Distribution Width 13.8 % (11.5-14.5); WBC 4.5 K/mcL (4.5-11.0)
[2021-11-25] MEDS: INSULIN LISPRO 1 UNIT/0.01 ML UNIT SQ SCH ×2 (06:49→11:40)
[2021-11-25] MEDS: glipiZIDE 5 MG TABLET PO SCH (06:49)
[2021-11-25 07:11] LABS: Phosphorous 2.3 mg/dL (2.5-4.5)
[2021-11-25 07:12] LABS: Digoxin 0.8 ng/mL
[2021-11-25 07:13] LABS: ALT/SGPT 41 U/L (<40); AST/SGOT 31 U/L (<40); Albumin 3.1 gm/dL (3.2-5.2); Alkaline Phosphatase 47 U/L (39-117); Bilirubin,Total 0.5 mg/dL (0.1-1.0); Blood Urea Nitrogen 12 mg/dL (8-23); Calcium 8.8 mg/dL (8.6-10.4); Carbon Dioxide 25 mmol/L (22-30); Chloride 100 mmol/L (96-108); Glomerular Filtration Rate 108; Glucose 137 mg/dL (70-105)
[2021-11-25] MEDS: cefTRIAXone 1 GM VIAL IV SCH (09:47)
[2021-11-25] MEDS: FISH OIL 1,000 MG CAPSULE PO SCH (09:47)
[2021-11-25] MEDS: DOCUSATE SODIUM 100 MG CAPSULE PO SCH (09:47)
[2021-11-25] MEDS: ENOXAPARIN 40 MG/0.4 ML SYRINGE SQ SCH (09:47)
[2021-11-25] MEDS: ASPIRIN 81 MG TAB.CHEW PO SCH (09:48)
[2021-11-25] MEDS: MULTIVIT,THER IRON,CA,FA & MIN 1 TABLET PO SCH (09:48)
[2021-11-25] MEDS: VITAMIN D3 25 MCG TABLET PO SCH (09:48)
[2021-11-25] MEDS: HYDROXYUREA 500 MG CAPSULE PO SCH (10:09)
--- NOTE | 2021-11-25 10:44 | Discharge Summary ---
Discharge Provider Provider Patient information: Note initiated : 11/25/21 at 10:36 am Service Date, if different from initiated Date: [] Patient: Kwabena Fong 71 y/o M admitted on 11/21/21 for fall. Chief Complaint: [] Date of admission: 11/21/21 19:46 Discharge date: 11/25/21 Primary care physician: Stephanie Arthur DO Attending physician on admission: Christian Chopra [place] Consults: 11/21/21 Consult to Physician [CONS] Stat Comment: Consulting Provider: Christian Yeboah Reason For Exam: Physician to Consult Attending physician on discharge: Christian Chopra Pui Discharge Meds Discharge Medications Home Medications cartilage 40 mg-collagen II 10 mg-boron 5 mg-hyaluronate 3.3 mg tablet (BrainRush) 1 tab PO QDAY 01/15/21 [History Confirmed 11/21/21 Last Taken Unknown] krill oil 500 mg capsule 500 mg PO QDAY cap 01/15/21 [History Confirmed 11/21/21 Last Taken Unknown] lisinopril 10 mg tablet 10 mg PO QDAY 01/15/21 [History Confirmed 11/21/21 Last Taken Unknown] rbmxopda-jqd-zefws acid 300 mcg-lycopene 600 mcg-lutein 300 mcg tablet (Centrum Silver Ultra Men's) 1 tab PO QDAY 01/15/21 [History Confirmed 11/21/21 Last Taken Unknown] aspirin 81 mg capsule,delayed release 81 mg PO QDAY 04/13/21 [History Confirmed 11/21/21 Last Taken Unknown] metformin 500 mg tablet 1,000 mg PO BID 04/13/21 [History Confirmed 11/21/21 Last Taken Unknown] cholecalciferol (vitamin D3) 50 mcg (2,000 unit) tablet (Vitamin D3) 50 mcg PO QDAY 09/16/21 [History Confirmed 11/21/21 Last Taken Unknown] cranberry 36 mg PO QDAY 09/16/21 [History Confirmed 11/21/21 Last Taken Unknown] glipizide 5 mg tablet 5 mg PO QDAY tab 09/16/21 [History Confirmed 11/21/21 Last Taken Unknown] hydroxyurea 500 mg capsule (Hydrea) 500 mg PO BID cap 09/16/21 [History Confirmed 11/21/21 Last Taken Unknown] digoxin 250 mcg (0.25 mg) tablet See Rx Instructions .ROUTE .COMPLEX 11/23/21 [History Confirmed 11/23/21 Last Taken Unknown] levofloxacin 750 mg tablet 750 mg PO Q24H #5 tab 11/25/21 [Rx Last Taken Unknown] COURSE Hospital Course Hospital course: Mr. Fong is a 71 year old M h/o bladder cancer s/p urostomy, T2DM, dementia, atrial fibrillation not on anticoagulant, thrombocythemia, essential HTN, p/w altered mental status with increasing confusion for 2 days and fall yesterday. Urostomy bag was last exchanged "long time ago". Daughter noted patient to be more confused than his baseline for the last 2 days. Patient had a unwitnessed fall yesterday (11/20) and now is c/o left hip pain. History otherwise limited by patient's mental status as well as absence of caregiver/family at the bedside. Vital signs all within normal limits upon ED presentation. Labs significant for lack of leukocytosis with EBC 7.2. Lactic acid 2.4. Serum sodium level 124 with baseline 137. Blood glucose 240. UA suggestive of presence of UTI. CT head w/o contrast showed on acute intracranial pathologies. Hip/pelvis X ray no signs of bone fracture of joint dislocation. 11/22: Fever Tmax 38.3. Blood and urine cultures no growth to date. Serum sodium level 132. c/o mouth soreness. Denies any fever, chills, or sweating at the moment. Denies any pain or discomfort. Denies any nausea or vomiting. Denies dysuria. Good appetite. Denies general body weakness. Denies anxiety. Denies confusion. Continue Rocephin and Normal Saline infusion. 11/23: Afebrile overnight. Blood culture gram positive cocci in cluster in 1 bottle 1 set. Serum sodium 132. Denies any fever, chills, or sweating at the moment. Denies any pain or discomfort. Denies any nausea or vomiting. Denies dysuria. Good appetite. Denies general body weakness. Denies anxiety. Denies confusion. Continue Rocephin and Normal Saline infusion. Transfer to inpatient med surg. 11/24: Afebrile overnight. Blood culture: coagulase negative staph; urine culture: E coli and K pneumoniae. Repeat blood culture on 11/23: no growth to date. Serum sodium 128. Denies any fever, chills, or sweating at the moment. Denies any pain or discomfort. Denies any nausea or vomiting. Denies dysuria. Good appetite. Denies general body weakness. Denies anxiety. Denies confusion. Continue Rocephin and Normal Saline infusion. Patient states that he is checking himself out at 230pm this afternoon. 11/25: Repeat blood culture no growth for 48hour. Since there was only bacterial growth in 1 set 1 bottle of the initial blood culture, it is highly suggestive for skin contamination rather than true bacteremia. Patient had reached clinical stability on 11/25 and the decision was made to discharge him home with home health service with Rx antibiotics sent to pharmacy. 2 week PCP follow up appointment made for him. All questions were answered prior to patient being physically discharged. Discharge diagnosis: UTI Time Spent with Patient Time attestation: Total time spent providing and/or coordinating discharge services: Time spent: Less than 30 minutes EXAM Constitutional Vitals: Temp Pulse Resp BP Pulse Ox 36.7 C 73 22 132/83 94 11/25/21 08:00 11/25/21 08:00 11/25/21 08:00 11/25/21 08:00 11/25/21 08:00 General appearance: cooperative and no acute distress Head Head exam: Present atraumatic and normocephalic Eye Eye exam: Present EOMI and PERRL ENT ENT exam: Present mucous membranes moist, normal exam and normal external ear exam Neck Neck exam: Present normal inspection; Absent lymphadenopathy, tenderness or thyromegaly Respiratory Respiratory exam: Absent accessory muscle use, respiratory distress or wheezes Cardiovascular Cardiovascular exam: Present irregular rhythm; Absent JVD GI/Abdominal GI/Abdominal exam: Present normal bowel sounds and soft; Absent organomegaly or tenderness Rectal Rectal exam: Present deferred Extremities Exam Extremities exam: Present full ROM, normal capillary refill and normal inspection; Absent tenderness Neurological Exam Neurological exam: Present alert, CN II-XII intact and oriented X3; Absent motor sensory deficit Psychiatric Psychiatric exam: Present normal affect and normal mood; Absent anxious or depressed Skin Skin exam: Present dry and intact Discharge Data Data Completed and Pending Labs on day of discharge: Labs from last 24 hours 11/25/21 11/25/21 11/25/21 05:51 05:51 05:51 WBC RBC Hgb Hct MCV MCH MCHC RDW Plt Count MPV Neut % (Auto) Lymph % (Auto) [place] % (Auto) Eos % (Auto) Baso % (Auto) Lymph # (Auto) [place] # (Auto) Eos # (Auto) Baso # (Auto) Absolute Neutrophils Sodium 134 Potassium 3.5 Chloride 100 Carbon Dioxide 25 Anion Gap 9.0 BUN 12 Creatinine 0.5 L GFR Calculation 108 Glucose 137 H Calcium 8.8 Phosphorus 2.3 L Magnesium 1.9 Total Bilirubin 0.5 AST 31 ALT 41 H Alkaline Phosphatase 47 Total Protein 6.1 Albumin 3.1 L Globulin 3.0 Albumin/Globulin Ratio 1.0 Digoxin 0.8 11/25/21 11/24/21 05:51 10:33 WBC 4.5 RBC 3.28 L Hgb 10.9 L Hct 33.1 L MCV 100.9 H MCH 33.2 MCHC 32.9 RDW 13.8 Plt Count 421 MPV 9.8 Neut % (Auto) 54.2 Lymph % (Auto) 32.7 [place] % (Auto) 10.2 Eos % (Auto) 2.2 Baso % (Auto) 0.7 Lymph # (Auto) 1.48 L [place] # (Auto) 0.46 Eos # (Auto) 0.10 Baso # (Auto) 0.03 Absolute Neutrophils 2.46 Sodium 131 L Potassium 3.4 Chloride 96 Carbon Dioxide 24 Anion Gap 11.0 BUN 15 Creatinine 0.6 L GFR Calculation 101 Glucose 233 H Calcium 8.7 Phosphorus Magnesium Total Bilirubin 0.5 AST 41 H ALT 42 H Alkaline Phosphatase 48 Total Protein 6.2 Albumin 3.0 L Globulin 3.2 Albumin/Globulin Ratio 0.9 L Digoxin Preliminary micro results at discharge 11/23/21 12:30 Blood Culture - Preliminary Blood 11/23/21 12:18 Blood Culture - Preliminary Blood 11/21/21 16:20 Blood Culture - Preliminary Blood 11/21/21 16:10 Blood Culture - Preliminary Blood Coagulase negative staph Discharge Plan Patient/Caregiver Discharge Instructions Activity: increase activity as tolerated Diet: Consistent Carbohydrate Prescriptions: New levofloxacin 750 mg tablet 750 mg PO Q24H Qty: 5 0RF Continued cranberry 36 mg PO QDAY 0RF lisinopril 10 mg tablet 10 mg PO QDAY 0RF krill oil 500 mg capsule 500 mg PO QDAY 0RF Centrum Silver Ultra Men's 300-600-300 mcg tablet 1 tab PO QDAY 0RF [facility] 40-10-5-3.3 mg tablet 1 tab PO QDAY 0RF glipizide 5 mg tablet 5 mg PO QDAY 0RF cholecalciferol (vitamin D3) [Vitamin D3] 50 mcg (2,000 unit) tablet 50 mcg PO QDAY 0RF hydroxyurea [Hydrea] 500 mg capsule 500 mg PO BID 0RF aspirin 81 mg Capsule,Delayed Release(Dr/Ec) 81 mg PO QDAY 0RF metformin 500 MG tablet 1,000 mg PO BID 0RF digoxin 250 mcg (0.25 mg) tablet See Rx Instructions .ROUTE .COMPLEX 0RF Label Comments: TAKE 3 TABLETS BY MOUTH EVERY OTHER DAY ALTERNATING WITH 2 TABLETS EVERY OTHER DAILY Rx Instructions: Take 3 tablets (0.75mg) by mouth every other day alternating with 2 tablets (0.50mg) every other day. Follow Up Plan Follow up with: Stephanie Arthur DO [Primary Care Provider] - Patient Disposition: Home Health Service Prognosis: Fair Rehab Potential: Good I certify that the patient requires SNF services: No Overall status at discharge: patient is progressing back to baseline Discharge Orders: Discharge Order (Routine); Ordered 11/25/21 Ordered By: Christian YOUSSEF VTE Deep Vein Thrombosis/Pulmonary Embolism Present on Admission: No
[2021-11-25 11:04] LABS: Lymphocytes % (Auto) 32.7 % (15.5-49.0)
[2021-11-25] MEDS ORDERED: DIGOXIN 125 MCG TABLET PO SCH (14:00)
== END 2021-11-25 16:00 | disposition home health service (06) | DRG 690 ==
LOC: ED 15:01 → ICU 19:46 → MEDSUR 11-23 12:02
PROVIDERS: ADMIT Internal Medicine; ATTEND Internal Medicine

== ENCOUNTER 2023-03-18 18:23 | Inpatient (IN) ==
[2023-03-18] MEDS ORDERED: ONDANSETRON 4 MG/2 ML VIAL IV ONE (18:37)
[2023-03-18] MEDS ORDERED: LACTATED RINGERS 1,000 ML IV ONE (18:37)
--- NOTE | 2023-03-18 18:42 | Emergency Department Note ---
Weakness HPI General Chief complaint: Weakness Stated complaint: weakness Time Seen by Provider: 03/18/23 18:26 Mode of arrival: wheelchair History of Present Illness HPI Narrative: Kwabena Fong is a 73-year-old male who presents to the emergency department complaining of generalized weakness, increased confusion, and decreased ability to perform ADLs. There was an unwitnessed fall yesterday. Unknown loss of consciousness. Patient has a history of dementia, but is normally able to maintain his urostomy bag. He has been unable to do so. Patient reports he has been feeling this way for approximately 5 or 6 weeks since he began being treated for a UTI. He denies dizziness, syncope, chest pain, shortness of breath, numbness and tingling, and all other acute complaints at this time. Per nursing, the patient has not taken his blood pressure medi cation for 3 days, and he has not eaten for several days. Patient's son-in-law participates in history to fill in gaps the patient is unable to communicate. Related Data Home Medications Medication Instructions Recorded Confirmed ymiinqan-mvy-tuldv acid 300 1 tab PO QDAY 01/15/21 03/18/23 mcg-lycopene 600 mcg-lutein 300 mcg tablet (Centrum Silver Ultra Men's) aspirin 81 mg capsule,delayed 81 mg PO QDAY 04/13/21 03/18/23 release cholecalciferol (vitamin D3) 50 50 mcg PO QDAY 09/16/21 03/18/23 mcg (2,000 unit) tablet (Vitamin D3) cranberry 36 mg PO QDAY 09/16/21 03/18/23 Previous Rx's Medication Instructions Recorded gabapentin 300 mg capsule 300 mg PO QDAY #30 caps 02/04/22 hydroxyurea 500 mg capsule (Hydrea) See Rx Instructions PO .COMPLEX 10/20/22 #180 caps lisinopril 10 mg tablet 10 mg PO QDAY #90 tabs 10/25/22 metformin 1,000 mg tablet 1,000 mg PO BID #180 tabs 11/23/22 digoxin 250 mcg (0.25 mg) tablet 0.25 mg PO QDAY #90 tabs 11/30/22 ciprofloxacin HCl 500 mg tablet 500 mg PO BID #14 tabs 03/16/23 Allergies Allergy/AdvReac Type Severity Reaction Status Date / Time No Known Drug Allergies Allergy Verified 10/04/22 07:36 Review of Systems ROS ROS Narrative: A comprehensive review of systems is obtained and found to be negative, except as per HPI. [facility] Narrative Patient History Narrative: Narrative: Medical/Surgical/Family History All Active Problems (Updated 03/18/23 @ 22:41 by Dayana Daniel PA-C) Anemia (Acute) Acute hyponatremia (Acute) Leukocytopenia, unspecified (Acute) Elevated serum creatinine (Acute) Elevated BUN (Acute) Presence of urostomy (Acute) Encounter for smoking cessation counseling (Acute) UTI (urinary tract infection) (Acute) Left leg numbness (Acute) Cloudy urine (Acute) Gram-positive cocci bacteremia (Acute) Hypophosphatemia (Acute) Hypokalemia (Acute) Essential hypertension (Acute) Anemia, macrocytic (Acute) Thrombocythemia (Acute) Delirium (Acute) Sepsis (Acute) Acute UTI (Acute) Altered mental status (Acute) Acute hyponatremia (Acute) Medicare annual wellness visit, initial (Acute) Prostate cancer (Chronic) Migraines (Chronic) Sciatic nerve pain (Chronic) Diabetes mellitus (Chronic) Hematuria (Chronic) Chest pain (Chronic) Arthritis (Chronic) Rib fracture (Chronic) Encounter for smoking cessation counseling (Chronic) Tobacco abuse (Chronic) Dementia (Chronic) COPD (chronic obstructive pulmonary disease) (Chronic) Neuropathy (Chronic) Diabetes mellitus, type II (Chronic) Lumbar degenerative disc disease (Chronic) Lumbar spondylosis with myelopathy (Chronic) Lumbar radiculopathy (Chronic) Constipation (Chronic) Amnesia (Chronic) Dizziness (Chronic) Left hip pain (Chronic) Polycythemia (Chronic) Hypertension (Chronic) Left knee pain (Chronic) Low back pain (Chronic) Dehydration (Chronic) UTI (urinary tract infection) (Chronic) Sacral back pain (Chronic) Radicular low back pain (Chronic) Orthostatic dizziness (Chronic) Medical History Amnesia Arthritis Bladder cancer 2000 with urostomy bag Chest pain Cloudy urine Constipation COPD (chronic obstructive pulmonary disease) Dehydration Dementia Diabetes mellitus Diabetes mellitus, type II Dizziness Encounter for smoking cessation counseling Encounter for smoking cessation counseling Hematuria Hypertension Left hip pain Left knee pain Left leg numbness Low back pain Lumbar degenerative disc disease Lumbar radiculopathy Lumbar spondylosis with myelopathy Medicare annual wellness visit, initial Migraines Neuropathy Orthostatic dizziness Polycythemia Presence of urostomy Prostate cancer Pulmonary embolism 1999 Radicular low back pain Rib fracture Sacral back pain Sciatic nerve pain Tobacco abuse 2 ppd, doesn't inhale UTI (urinary tract infection) UTI (urinary tract infection) Surgical History History of herniorrhaphy History of knee surgery History of prostatectomy (~1999) With Ileal Conduit History of total cystectomy (~1999) Family History Other No pertinent family history Social History Smoking Status: Current every day smoker Alcohol Intake Frequency: 0-2 drinks per day Substance Use: does not use Exam Narrative Narrative: General: Alert, pleasant, conversant, NAD, extremely tall patient (states 6 foot 6) HEENT: EOMI, PERRL, poor dentition Chest/respiratory: Symmetric chest wall expansion, CTAB, adequate tidal volume and respiratory effort, speaks in complete paragraphs without difficulty CV: Irregularly irregular rhythm, systolic murmur loudest at aortic area, cap refill less than 2 seconds; palpable peripheral pulses at DP; pedal edema with 2+ pitting at the ankles Abdomen/GI: NABs, soft, NT/ND Extremities/MSK: MAEW, no unilateral weakness Skin: Normal warm and dry Course Vital Signs Vital signs: Vital Signs Temperature 98.3 F 03/18/23 18:24 Pulse Rate 101 H 03/18/23 18:24 Respiratory Rate 20 03/18/23 18:24 Blood Pressure 122/76 03/18/23 18:24 Pulse Oximetry (%) 99 03/18/23 18:24 Oxygen Delivery Method Room Air 03/18/23 18:24 Temperature 98.3 F 03/18/23 18:24 Pulse Rate 101 H 03/18/23 18:24 Respiratory Rate 20 03/18/23 18:24 Blood Pressure 122/76 03/18/23 18:24 Pulse Oximetry (%) 99 03/18/23 18:24 Oxygen Delivery Method Room Air 03/18/23 18:24 MDM MDM Narrative Medical decision making narrative: Patient presents to the emergency department complaining of generalized weakness for 5 to 6 weeks. He has a known urinary tract infection being treated with Cipro. Initial rhythm on EKG is atrial fibrillation, which the family member in the emergency department states the patient has history of same. Patient reports feeling generally rundown and weak. There was an unwitnessed fall yesterday, but the patient denies loss of consciousness. He is not on anticoagulant medication. CT imaging of the head and cervical spine without contrast demonstrate no acute cervical spine SPECT fracture or dislocation. There is no acute skull fracture or intracranial hemorrhage. On exam, the patient has no cervical spine tenderness, bony or muscular. EKG at 1927 shows atrial fibrillation at a rate of 92 (controlled). There is no ST elevation, depression. Poor R wave progression. Troponin is negative at less than 0.02. Urine sample obtained from urostomy for dip is negative for glucose and ketones, specific gravity is 1.020 with moderate blood, pH 6.0, more than 300 mg/dL protein, and is negative for nitrites and leukocyte Estrace. Urine is sent for micro, which reveals hazy urine with a pH of 5, 100 protein, occult blood is 0.20, 10 white blood cells per high-power field, no bacteria or squamous cells visible, casts 3, mucus few. CMP shows a sodium of 121, BUN 34, creatinine 3.2, eGFR 84, glucose 151, and AST 49. No prior values available for creatinine to compare. Sodium of 121 is well below prior values. CBC shows low white blood cell count of 2.6, H&H is 7.4 and 22.1. Red cell distribution width is not elevated. Given the patient's very low sodium of 121, the hospitalist service is contacted to request admission of this patient for further evaluation and management of his hyponatremia, anemia, and elevated creatinine. Dr. Rosen of the hospitalist service returns my call and we discussed patient's case in detail. He requests a digital rectal exam for stool guaiac to exclude GI bleeding as a source of anemia. Dr. Goodson comes to see the patient while I am performing another procedure, and graciously performs digital rectal exam with negative stool guaiac. Patient is admitted for further care by the hospitalist service. Sepsis Sepsis Identified: No Discharge Plan Patient/Caregiver Discharge Instructions Pt seen by [employer] OFFICER/PA only: Yes Clinical Impression: Anemia, Acute hyponatremia, Leukocytopenia, unspecified, Elevated serum creatinine, Elevated BUN Patient Disposition: Xfer As Outpt/Obs ([facility]) Follow up with: Stephanie Arthur DO [Primary Care Provider] - Prescriptions: No Action hydroxyurea [Hydrea] 500 mg capsule See Rx Instructions PO .COMPLEX Qty: 180 2RF Rx Instructions: 1000mg qAM, 500mg qPM lisinopril 10 mg tablet 10 mg PO QDAY Qty: 90 2RF metformin 1,000 mg tablet 1,000 mg PO BID Qty: 180 1RF digoxin 250 mcg (0.25 mg) tablet 0.25 mg PO QDAY Qty: 90 1RF ciprofloxacin HCl 500 mg tablet 500 mg PO BID Qty: 14 0RF cranberry 36 mg PO QDAY Centrum Silver Ultra Men's 300-600-300 mcg tablet 1 tab PO QDAY cholecalciferol (vitamin D3) [Vitamin D3] 50 mcg (2,000 unit) tablet 50 mcg PO QDAY gabapentin 300 mg capsule 300 mg PO QDAY Qty: 30 4RF aspirin 81 mg Capsule,Delayed Release(Dr/Ec) 81 mg PO QDAY
[2023-03-18 19:36] LABS: Basophils # (Auto) 0.01 K/mcL (0.00-0.30); Basophils % (Auto) 0.4 % (0.0-2.0); Eosinophils # (Auto) 0 K/mcL (0.00-0.70); Eosinophils % (Auto) 0 % (0.0-7.0); Hematocrit 22.1 % (40.1-51.0); Hemoglobin 7.4 g/dL (13.7-17.5); Lymphocytes # (Auto) 0.63 K/mcL (1.50-4.80); Lymphocytes % (Auto) 24.2 % (15.5-49.0); Mean Cell Volume 127.7 fL (80.0-100.0); Mean Corpuscular HGB Conc 33.5 g/dL (31.0-36.0); Mean Platelet Volume 10.5 fL (8.8-12.5); Monocytes % (Auto) 15.4 % (1.0-12.0); Neutrophils % (Auto) 59.6 % (38.0-78.0); Platelet Count 138 K/mcL (140-440); RBC 1.73 M/mcL (4.63-6.08); Red Cell Distribution Width 13.9 % (11.5-14.5); WBC 2.6 K/mcL (4.5-11.0)
[2023-03-18 19:40] LABS: POC Calcium, Ionized 1.22 (1.16-1.32); POC Creatinine 3.2 (0.6-1.2); POC Potassium 4.3 (3.3-5.1)
[2023-03-18 20:02] LABS: ALT/SGPT 24 U/L (<40); AST/SGOT 47 U/L (<40); Albumin/Globulin Ratio 1.1 (1.0-2.3); Alkaline Phosphatase 55 U/L (39-117); Bilirubin,Total 0.9 mg/dL (0.1-1.0); Blood Urea Nitrogen 34 mg/dL (8-23); Calcium 10.3 mg/dL (8.6-10.4); Carbon Dioxide 22 mmol/L (22-30); Chloride 86 mmol/L (96-108); Globulin 3.8 gm/dL (2.2-3.7); Glomerular Filtration Rate 84; Glucose 151 mg/dL (70-105)
[2023-03-18 21:48] LABS: Appearance,Urine HAZY (Clear); Bilirubin,Urine Negative (Negative); Color,Urine YELLOW; Culture Indicated,Urine yes; Glucose,Urine (UA) Negative (Negative); Ketones,Urine Negative (Negative); Leukocyte Esterase,Urine Negative /uL (Negative); Mucus,Urine FEW /hpf; Nitrate,Urine Negative (Negative); Protein,Urine 100 mg/dL (Negative); Specific Gravity,Urine 1.015 (1.000-1.035); Urine Granular Cast 3 /lph (0-0); Urine Hyaline Cast 1 /lph (0-2); Urine RBC 1 /hpf (0-3); Urine Squamous Epithelial Cell 0 /hpf (0-4); Urine WBC 10 /hpf (0-4); Urobilinogen,Urine Negative
--- NOTE | 2023-03-18 21:58 | Internal Med History&Physical ---
HPI History of Present Illness Patient information: Note initiated : 03/18/23 at 9:44 pm Service Date, if different from initiated Date: [] Patient: Kwabena Fong 73 y/o M admitted on for weakness. Chief Complaint: [] History of present illness: Mr. Fong is a 73 year old M Patient states he is here because of his but does not know why he was brought in. Patient is a poor historian and has dementia with increased confusion so history is obtained from chart mostly. Sound like he had become increasingly weak and confused. Recently started on Cipro for UTI. Patient has urostomy bag and has not been able to maintain it l ately.. Patient not been eating or drinking much lately per the note stopped taking blood pressure medications few days ago and fell recently. Patient's blood pressure was 120 systolic when he arrived but several hours after arrival he seemed to drop into the 90s with 1 recorded blood pressure of 80/49. Last blood pressure 100/53. He is only mildly tachycardic in the 90s. Patient is on room air. Hematology reveals a leukopenia anemia and thrombocytopenia. Lactic acid pending. Urinalysis seems to have cleared up from urinalysis done on the . Troponin unremarkable. Sodium low at 121 with a chloride of 86. BUN 34 with a creatinine of 1. Patient started on IV fluids in the ED. Patient is does have chronic anemia but baseline seems to be 11-13 and it is currently 7.4. I performed a VANDANA which was negative for fecal occult blood test. Patient has a history of diabetes atrial fibrillation on digoxin but is not on anticoagulation due to fall risk. He has a history of dementia. He smokes a pack per day and has 1-2 drinks per day per recent PCP records. Review of system: Unable to obtain due to patient's confusion and unreliability. PHYSICAL EXAM General: Awake, No acute Distress Eyes/N/T: EOMI, no scleral icterus, PERRL, dry MM Head/Neck: neck supple, full ROM, normocephalic atraumatic CV: Regular with irregularity, No murmurs, normal s1/s2 Pulm: Clear b/l, no wheezing/rhonchi/rales, no respiratory distress Abd: soft, nontender, +BS x4 Ext: no clubbing/cyanosis/edema, nontender Neuro: mild confusion, CN 2-12 grossly intact, no focal deficits, moves all extremities, , sensations intact b/l upper/lower Psychiatric: Skin: warm/dry, normal color, poor skin turgor PFSH PFSH All Active Problems Presence of urostomy (Acute) Encounter for smoking cessation counseling (Acute) UTI (urinary tract infection) (Acute) Left leg numbness (Acute) Cloudy urine (Acute) Gram-positive cocci bacteremia (Acute) Hypophosphatemia (Acute) Hypokalemia (Acute) Essential hypertension (Acute) Anemia, macrocytic (Acute) Thrombocythemia (Acute) Delirium (Acute) Sepsis (Acute) Acute UTI (Acute) Altered mental status (Acute) Acute hyponatremia (Acute) Medicare annual wellness visit, initial (Acute) Prostate cancer (Chronic) Migraines (Chronic) Sciatic nerve pain (Chronic) Diabetes mellitus (Chronic) Hematuria (Chronic) Chest pain (Chronic) Arthritis (Chronic) Rib fracture (Chronic) Encounter for smoking cessation counseling (Chronic) Tobacco abuse (Chronic) Dementia (Chronic) COPD (chronic obstructive pulmonary disease) (Chronic) Neuropathy (Chronic) Diabetes mellitus, type II (Chronic) Lumbar degenerative disc disease (Chronic) Lumbar spondylosis with myelopathy (Chronic) Lumbar radiculopathy (Chronic) Constipation (Chronic) Amnesia (Chronic) Dizziness (Chronic) Left hip pain (Chronic) Polycythemia (Chronic) Hypertension (Chronic) Left knee pain (Chronic) Low back pain (Chronic) Dehydration (Chronic) UTI (urinary tract infection) (Chronic) Sacral back pain (Chronic) Radicular low back pain (Chronic) Orthostatic dizziness (Chronic) Medical History Amnesia Arthritis Bladder cancer 1999 with urostomy bag Chest pain Cloudy urine Constipation COPD (chronic obstructive pulmonary disease) Dehydration Dementia Diabetes mellitus Diabetes mellitus, type II Dizziness Encounter for smoking cessation counseling Encounter for smoking cessation counseling Hematuria Hypertension Left hip pain Left knee pain Left leg numbness Low back pain Lumbar degenerative disc disease Lumbar radiculopathy Lumbar spondylosis with myelopathy Medicare annual wellness visit, initial Migraines Neuropathy Orthostatic dizziness Polycythemia Presence of urostomy Prostate cancer Pulmonary embolism 2000 Radicular low back pain Rib fracture Sacral back pain Sciatic nerve pain Tobacco abuse 2 ppd, doesn't inhale UTI (urinary tract infection) UTI (urinary tract infection) Surgical History History of herniorrhaphy History of knee surgery History of prostatectomy (~1999) With Ileal Conduit History of total cystectomy (~1999) Family History Other No pertinent family history Social History household members: spouse marital status: education level: college occupational status: retired smoking status: Current every day smoker alcohol intake frequency: 0-2 drinks per day substance use type: does not use MEDS/ALLERGIES Home Medications and Allergies Home Medications Medication Instructions Recorded Confirmed Type zmaypfto-icm-mxhny acid 300 1 tab PO QDAY 01/15/21 03/18/23 History mcg-lycopene 600 mcg-lutein 300 mcg tablet (Centrum Silver Ultra Men's) aspirin 81 mg capsule,delayed 81 mg PO QDAY 04/13/21 03/18/23 History release cholecalciferol (vitamin D3) 50 50 mcg PO QDAY 09/16/21 03/18/23 History mcg (2,000 unit) tablet (Vitamin D3) cranberry 36 mg PO QDAY 09/16/21 03/18/23 History gabapentin 300 mg capsule 300 mg PO QDAY #30 caps 02/04/22 03/18/23 Rx hydroxyurea 500 mg capsule (Hydrea) See Rx Instructions PO .COMPLEX 10/20/22 03/18/23 Rx #180 caps lisinopril 10 mg tablet 10 mg PO QDAY #90 tabs 10/25/22 03/18/23 Rx metformin 1,000 mg tablet 1,000 mg PO BID #180 tabs 11/23/22 03/18/23 Rx digoxin 250 mcg (0.25 mg) tablet 0.25 mg PO QDAY #90 tabs 11/30/22 03/18/23 Rx ciprofloxacin HCl 500 mg tablet 500 mg PO BID #14 tabs 03/16/23 03/18/23 Rx Allergies Allergy/AdvReac Type Severity Reaction Status Date / Time No Known Drug Allergies Allergy Verified 10/04/22 07:36 EXAM Constitutional Vitals: Temp Pulse Resp BP Pulse Ox O2 Del Method O2 Flow Rate 98.3 F 83 19 100/53 100 Room Air 92 03/18/23 18:24 03/18/23 21:16 03/18/23 21:16 03/18/23 21:16 03/18/23 21:16 03/18/23 19:18 03/18/23 19:18 DATA Data Completed and Pending Labs: Labs from last 24 hours 03/18/23 03/18/23 03/18/23 21:00 19:14 19:06 WBC RBC Hgb Hct POC Hct 22.0 L MCV MCH MCHC RDW Plt Count MPV Immature Gran % (Auto) Neut % (Auto) Lymph % (Auto) Adams % (Auto) Eos % (Auto) Baso % (Auto) Lymph # (Auto) Adams # (Auto) Eos # (Auto) Baso # (Auto) Immature Gran # Absolute Neutrophils POC Sodium 128 L Sodium POC Potassium 4.3 Potassium POC Chloride 94 L Chloride Carbon Dioxide POC Total CO2 25.0 Anion Gap POC BUN 34 H BUN Creatinine POC Creatinine 3.2 H GFR Calculation Glucose POC Glucose 166 H Calcium POC WB Ioniz Calcium 1.22 Magnesium Total Bilirubin AST ALT Alkaline Phosphatase Total Protein Albumin Globulin Albumin/Globulin Ratio Beta-Hydroxybutyrate Urine Color Pending Urine Appearance Pending Urine pH Pending Ur Specific Walls Pending Urine Protein Pending Urine Glucose (UA) Pending Urine Ketones Pending Urine Occult Blood Pending Urine Nitrate Pending Urine Bilirubin Pending Urine Urobilinogen Pending Ur Leukocyte Esterase Pending POC Troponin I < 0.02 03/18/23 03/18/23 03/18/23 18:45 18:45 18:45 WBC 2.6 L RBC 1.73 L Hgb 7.4 L Hct 22.1 L POC Hct MCV 127.7 H MCH 42.8 H MCHC 33.5 RDW 13.9 Plt Count 138 L MPV 10.5 Immature Gran % (Auto) 0.4 Neut % (Auto) 59.6 Lymph % (Auto) 24.2 Adams % (Auto) 15.4 H Eos % (Auto) 0 Baso % (Auto) 0.4 Lymph # (Auto) 0.63 L Adams # (Auto) 0.40 Eos # (Auto) 0 Baso # (Auto) 0.01 Immature Gran # 0.01 Absolute Neutrophils 1.55 L POC Sodium Sodium 121 L POC Potassium Potassium 4.2 POC Chloride Chloride 86 L Carbon Dioxide 22 POC Total CO2 Anion Gap 13.0 POC BUN BUN 34 H Creatinine 0.9 POC Creatinine GFR Calculation 84 Glucose 151 H POC Glucose Calcium 10.3 POC WB Ioniz Calcium Magnesium 2.0 Total Bilirubin 0.9 AST 47 H ALT 24 Alkaline Phosphatase 55 Total Protein 7.8 Albumin 4.0 Globulin 3.8 H Albumin/Globulin Ratio 1.1 Beta-Hydroxybutyrate 0.12 Urine Color Urine Appearance Urine pH Ur Specific Walls Urine Protein Urine Glucose (UA) Urine Ketones Urine Occult Blood Urine Nitrate Urine Bilirubin Urine Urobilinogen Ur Leukocyte Esterase POC Troponin I A/P Narrative A/P Narrative: A: *Acute on chronic hyponatremia: suspect poor oral intake on chronic *Volume depletion: *Hypotension, hypovolemic: In proved in the ED with IVF *Hypochloridemia: 2/2 above *Pancytopenia (leukopenia with mild Neutropenia/acute on chronic Macrocytic anemia /thrombocytopenia) -GQS=[id number] -FOBT neg *Encephalopathy, acute on chronic: 2/2 above *Dementia: *PAF: on Dig, No anticoagulation due to fall risk, prn IV lopressor *DM2 w/neuropathy: *HTN: on ACEI *Tobacco abuse: *recently treated with cipro for UTI: *Generalized weakness/deconditioning: P: -NS IVF, f/u na -hyponatremia w/u pending -monitor renal fxn/UOP/fluid balance -monitor H&H and transfuse for <7 -Delirium precautions - -SSI -cont Dig(check level) -hold ACEI for low BP -Home medication reconciliation -PT/OT -CM for placement needs -Smoking cessation counseling >3 minutes -ppx: lovenox (hold if plt<50k) Time Spent With Patient Time: Total time spent is greater than 50% in coordination of care (as documented) at patient's floor/unit and/or counseling patient: Initial: Total time with patient: 75 - 90 minutes
[2023-03-18] MEDS ORDERED: 0.9 % SODIUM CHLORIDE 1,000 ML IV SCH ×2 (22:15→23:23)
[2023-03-18 22:20] LABS: Albumin 4.1 gm/dL (3.2-5.2); Bilirubin,Direct 0.2 mg/dL (<0.3); Bilirubin,Total 0.9 mg/dL (0.1-1.0); Globulin 3.2 gm/dL (2.2-3.7); Uric Acid 5.1 mg/dL (2.5-8.0)
[2023-03-18 22:27] LABS: Osmolality,Urine 497 mOSM/kg (80-1000)
[2023-03-18 22:44] LABS: Thyroid Stimulating Hormone 1.64 uIU/mL (0.27-5.01)
[2023-03-18 23:10] LABS: Sodium, Urine Random 12 mmol/L
[2023-03-18] MEDS ORDERED: METOPROLOL TARTRATE 5 MG/5 ML VIAL IV PRN (23:23)
[2023-03-18] MEDS ORDERED: POTASSIUM CHLORIDE 40 MEQ in DEXTROSE 5% IN WATER 500 ML IV PRN (23:23)
[2023-03-18] MEDS ORDERED: IPRATROPIUM/ALBUTEROL 3 ML AMPUL.NEB NEB PRN (23:23)
[2023-03-18] MEDS ORDERED: OLANZapine 5 MG TABLET PO PRN (23:23)
[2023-03-18] MEDS ORDERED: POTASSIUM CHLORIDE 20 MEQ TABLET PO PRN ×2 (23:23)
[2023-03-18] MEDS ORDERED: DEXTROSE 31 GM ORAL.SUSP PO PRN (23:23)
[2023-03-18] MEDS ORDERED: DEXTROSE 50% 50 ML VIAL IV PRN (23:23)
[2023-03-18] MEDS ORDERED: ACETAMINOPHEN 325 MG TABLET PO PRN (23:23)
[2023-03-18] MEDS ORDERED: ONDANSETRON 4 MG/2 ML VIAL IV PRN (23:23)
[2023-03-18] MEDS ORDERED: MAGNESIUM SULFATE 2 GM/50 ML BAG IV PRN (23:23)
[2023-03-18] MEDS ORDERED: POLYETHYLENE GLYCOL 3350 17 GM PACKET PO PRN (23:23)
[2023-03-19 01:26] LABS: Digoxin 1.3 ng/mL
[2023-03-19 01:36] LABS: Blood Urea Nitrogen 36 mg/dL (8-23); Carbon Dioxide 25 mmol/L (22-30); Chloride 94 mmol/L (96-108); Glomerular Filtration Rate 89; Glucose 119 mg/dL (70-105)
[2023-03-19] MEDS: 0.9 % SODIUM CHLORIDE 10 ML SYRINGE IV SCH ×3 (06:00→20:45)
[2023-03-19 06:43] LABS: Hemoglobin 6.3 g/dL (13.7-17.5); Mean Cell Volume 128.4 fL (80.0-100.0); Mean Corpuscular HGB Conc 33.2 g/dL (31.0-36.0); Platelet Count 127 K/mcL (140-440); RBC 1.48 M/mcL (4.63-6.08); Red Cell Distribution Width 13.5 % (11.5-14.5); WBC 2.1 K/mcL (4.5-11.0)
[2023-03-19 06:45] LABS: ALT/SGPT 23 U/L (<40); AST/SGOT 43 U/L (<40); Albumin 3.5 gm/dL (3.2-5.2); Albumin/Globulin Ratio 1.1 (1.0-2.3); Alkaline Phosphatase 51 U/L (39-117); Bilirubin,Direct < 0.2 mg/dL (0-0.3); Bilirubin,Total 0.7 mg/dL (0.1-1.0); Blood Urea Nitrogen 31 mg/dL (8-23); Calcium 9.6 mg/dL (8.6-10.4); Carbon Dioxide 26 mmol/L (22-30); Chloride 94 mmol/L (96-108); Globulin 3.2 gm/dL (2.2-3.7); Glomerular Filtration Rate 89; Glucose 109 mg/dL (70-105); Lactate Dehydrogenase 302 U/L (135-225); Phosphorous 2.7 mg/dL (2.5-4.5); Triglycerides 168 mg/dL (<150); Uric Acid 5.2 mg/dL (2.5-8.0)
[2023-03-19] MEDS ORDERED: 0.9 % SODIUM CHLORIDE 250 ML IV SCH (07:45)
[2023-03-19 08:02] LABS: Anisocytosis 1+ (None Seen); Lymphocytes % 29 % (15-49); Macrocytosis 3+ (None Seen); Monocytes % (Manual) 18 % (1-12); Platelet Estimate DECREASED (Normal); RBC Morphology ABNORMAL (Normal); Segmented Neutrophils % 53 % (38-78)
--- NOTE | 2023-03-19 08:03 | Internal Med Progress Note ---
SUBJECTIVE Subjective Patient information: Note initiated : 03/19/23 at 8:01 am Service Date, if different from initiated Date: [] Patient: Kwabena Fong 73 y/o M admitted on 03/18/23 for weakness. Chief Complaint: [] Interval history: History of present illness: Mr. Fogn is a 73 year old M Patient states he is here because of his but does not know why he was brought in. Patient is a poor historian and has dementia with increased confusion so history is obtained from chart mostly. Sound like he had become increasingly weak and confused. Recently started on Cipro for UTI. Patient has urostomy bag and has not been able to maintain it lately.. Patient not been eating or drinking much lately per the note stopped taking blood pressure medications few days ago and fell recently. Patient's blood pressure was 120 systolic when he arrived but several hours after arrival he seemed to drop into the 90s with 1 recorded blood pressure of 80/49. Last blood pressure 100/53. He is only mildly tachycardic in the 90s. Patient is on room air. Hematology reveals a leukopenia anemia and thrombocytopenia. Lactic acid pending. Urinalysis seems to have cleared up from urinalysis done on the . Troponin unremarkable. Sodium low at 121 with a chloride of 86. BUN 34 with a creatinine of 1. Patient started on IV fluids in the ED. Patient is does have chronic anemia but baseline seems to be 11-13 and it is currently 7.4. I performed a VANDANA which was negative for fecal occult blood test. Patient has a history of diabetes atrial fibrillation on digoxin but is not on anticoagulation due to fall risk. He has a history of dementia. He smokes a pack per day and has 1-2 drinks per day per recent PCP records. 03/19 Patient states he slept okay. Hemoglobin dropped to 6.3 today. Blood pressure still soft but maintaining close to 100 systolic. 2 PRBC ordered. No gross bleeding. CT abdomen pelvis to evaluate for occult bleeding source. Monitor sodium closely. Hypotonic solution this morning. Iron studies dictated of chronic inflammation. Pending full anemia work-up. Haptoglobin appropriate normal. Review of Systems: denies headache/fever/chills/nausea/vomiting/chest or abdominal pain/cough/dyspnea/diarrhea. Otherwise see above. PHYSICAL EXAM General: Awake, No acute Distress Eyes/N/T: EOMI, no scleral icterus, Head/Neck: neck supple, full ROM, CV: Regular with irregularity, No murmurs, Pulm: Clear b/l, no wheezing/rhonchi/rales, no respiratory distress Abd: soft, nontender, +BS x4 Ext: no clubbing/cyanosis/edema, nontender Back: Stage III sacral ulcer Neuro: mild confusion, no focal deficits, moves all extremities, , sensations intact b/l upper/lower Psychiatric: Skin: warm/dry, normal color, poor skin turgor Constitutional Vitals: Vital Signs Temp Pulse Resp BP Pulse Ox O2 Del Method O2 Flow Rate 97.8 F 79 22 100/61 100 Room Air 92 03/19/23 04:01 03/19/23 04:01 03/19/23 04:01 03/19/23 04:01 03/19/23 04:01 03/18/23 23:01 03/18/23 19:18 Period Temp Pulse Resp BP Sys/Bundy Pulse Ox O2 Del Method O2 Flow Rate Last 24 Hr 97.8 F-98.3 F 75-101 16-32 77-136/38-123 83-100 Room Air-Room Air 92 Intake and Output 03/18/23 03/19/23 03/19/23 19:59 03:59 11:59 Intake Total 1185 Output Total 600 Balance 1185 -600 Weight 78.608 kg 76.702 kg Intake & Output: Intake & Output 03/18/23 03/19/23 03/19/23 19:59 03:59 11:59 Intake Total 1185 Output Total 600 Balance 1185 -600 Weight 78.608 kg 76.702 kg Intake: IV 1185 Sodium Chloride 0.9% 1,000 ml @ 185 75 mls/hr IV .[id number] [facility]YLAN Rx#: [id number] Lactated Ringers 1,000 ml @ 1000 Wide Open IV .Q0M ONE Rx#: [id number] Output: Void Amount 600 Other: Urine Appearance Clear Urine Color Dark Yellow OBJ DATA Labs 03/19/23 05:29 03/19/23 05:29 Labs: Abnormal Lab Results 03/19/23 03/19/23 03/19/23 05:29 05:29 05:29 WBC 2.1 L RBC 1.48 L Hgb 6.3 L* Hct 19.0 L* POC Hct MCV 128.4 H MCH 42.6 H Plt Count 127 L Antelope % (Auto) Lymph # (Auto) Absolute Neutrophils POC VBG pH POC VBG pCO2 at Temp POC VBG Base Excess POC Sodium Sodium 131 L POC Chloride Chloride 94 L POC BUN BUN 31 H POC Creatinine Glucose 109 H POC Glucose AST 43 H Lactate Dehydrogenase 302 H Globulin Triglycerides 168 H Cortisol AM Sample 25.4 H Urine Appearance Urine Protein Urine WBC Granular Casts Urine Mucus 03/19/23 03/18/23 03/18/23 00:12 22:53 21:00 WBC RBC Hgb Hct POC Hct MCV MCH Plt Count Antelope % (Auto) Lymph # (Auto) Absolute Neutrophils POC VBG pH 7.43 H POC VBG pCO2 at Temp 40.5 L POC VBG Base Excess 3.0 H POC Sodium Sodium 132 L POC Chloride Chloride 94 L POC BUN BUN 36 H POC Creatinine Glucose 119 H POC Glucose AST Lactate Dehydrogenase Globulin Triglycerides Cortisol AM Sample Urine Appearance Hazy A Urine Protein 100 A Urine WBC 10 H Granular Casts 3 H Urine Mucus Few A 03/18/23 03/18/23 03/18/23 19:06 18:45 18:45 WBC RBC Hgb Hct POC Hct 22.0 L MCV MCH Plt Count Antelope % (Auto) Lymph # (Auto) Absolute Neutrophils POC VBG pH POC VBG pCO2 at Temp POC VBG Base Excess POC Sodium 128 L Sodium 121 L POC Chloride 94 L Chloride 86 L POC BUN 34 H BUN 34 H POC Creatinine 3.2 H Glucose 151 H POC Glucose 166 H AST 49 H 47 H Lactate Dehydrogenase Globulin 3.8 H Triglycerides Cortisol AM Sample Urine Appearance Urine Protein Urine WBC Granular Casts Urine Mucus 03/18/23 18:45 WBC 2.6 L RBC 1.73 L Hgb 7.4 L Hct 22.1 L POC Hct MCV 127.7 H MCH 42.8 H Plt Count 138 L Antelope % (Auto) 15.4 H Lymph # (Auto) 0.63 L Absolute Neutrophils 1.55 L POC VBG pH POC VBG pCO2 at Temp POC VBG Base Excess POC Sodium Sodium POC Chloride Chloride POC BUN BUN POC Creatinine Glucose POC Glucose AST Lactate Dehydrogenase Globulin Triglycerides Cortisol AM Sample Urine Appearance Urine Protein Urine WBC Granular Casts Urine Mucus Meds: Medications Acetaminophen (Acetaminophen 325 Mg Tablet) 650 mg PO Q6HP PRN; Protocol PRN Reason: Per Pain Protocol/Fever > 101 Albuterol/Ipratropium (Ipratropium/Albuterol 3 Ml Ampul.Neb) 3 ml NEB Q4HP PRN PRN Reason: Shortness Of Breath Dextrose (Dextrose 50% 50 Ml Vial) 0 ml IV UD PRN PRN Reason: Per Sliding Scale Diagnostic Test (Pha) (Accu-Chek 1 Each Strip) 1 each FS ACHS DYLAN Digoxin (Digoxin 125 Mcg Tablet) 250 mcg PO DAILY@1400 [facility] Docusate Sodium (Docusate Sodium 100 Mg Capsule) 100 mg PO BID DYLAN Enoxaparin Sodium (Enoxaparin 40 Mg/0.4 Ml Syringe) 40 mg SQ DAILY [facility]YL[facility] Gabapentin (Gabapentin 300 Mg Capsule) 300 mg PO QDAY DYLAN Glucose (Dextrose 31 Gm Oral.Susp) 15 gm PO PRN PRN PRN Reason: Hypoglycemia Hydroxyurea (Hydroxyurea 500 Mg Capsule) 1,000 mg PO DAILY DYLAN Hydroxyurea (Hydroxyurea 500 Mg Capsule) 500 mg PO HS [facility]YLAN Sodium Chloride (Sodium Chloride 0.9%) 1,000 mls @ 75 mls/hr IV .[id number] [facility] Last Infusion: 03/19/23 01:20 Dose: 0 mls/hr Potassium Chloride 40 meq/ (Dextrose) 520 mls @ 130 mls/hr IV UD PRN PRN Reason: Potassium < 3 Magnesium Sulfate (Magnesium Sulfate) 2 gm in 50 mls @ 50 mls/hr IV UD PRN PRN Reason: Magnesium </= 1.6 Sodium Chloride (Sodium Chloride 0.9%) 250 mls @ 20 mls/hr IV .[id number] [facility] Stop: 03/19/23 20:14 Insulin Human Lispro (Insulin Lispro 1 Unit/0.01 Ml Unit) 0 unit SQ ACHS [facility]; Protocol Metoprolol Tartrate (Metoprolol Tartrate 5 Mg/5 Ml Vial) 5 mg IV Q2HP PRN PRN Reason: Tachyarrhythmias HR>110 Olanzapine (Olanzapine 5 Mg Tablet) 5 mg PO HSP PRN PRN Reason: Agitation Ondansetron HCl (Ondansetron 4 Mg/2 Ml Vial) 4 mg IV Q4HP PRN PRN Reason: Nausea And Vomiting Polyethylene Glycol (Polyethylene Glycol 3350 17 Gm Packet) 17 gm PO DAILYP PRN PRN Reason: Constipation Potassium Chloride (Potassium Chloride 20 Meq Tablet) 40 meq PO UD PRN PRN Reason: Potssium is 3-3.5 Potassium Chloride (Potassium Chloride 20 Meq Tablet) 40 meq PO UD PRN PRN Reason: Potassium < 3 Senna (Sennosides 1 Tablet) 2 tab PO DAILYP PRN PRN Reason: Constipation Sodium Chloride (0.9 % Sodium Chloride 10 Ml Syringe) 10 ml IV Q8 [facility]YLAN Last Admin: 03/19/23 06:00 Dose: 10 ml A/P Narrative A/P Narrative: A: *Acute on chronic hyponatremia: 2/2 poor oral intake on chronic -tsh/cortisol ok *Volume depletion: *Hypotension, hypovolemic: In proved in the ED with IVF *Hypochloridemia: 2/2 above *Pancytopenia (leukopenia with mild Neutropenia/acute on chronic Macrocytic anemia /thrombocytopenia) -DRO=9897>1100 -Hgb 7.4>6.3 ; FOBT neg and CT neg for RP or other source of bleeding, no hemolysis, - *Encephalopathy, acute on chronic: 2/2 above *Dementia: *PAF: on Dig, No anticoagulation due to fall risk, prn IV lopressor *DM2 w/neuropathy: *HTN: on ACEI *Tobacco abuse: *recently treated with cipro for UTI: *Stage III sacral ulcer present on admission *Generalized weakness/deconditioning: P: -IVF, f/u na -monitor renal fxn/UOP/fluid balance -monitor H&H and transfuse for <7; transfuse 2prbc today -CT a/p eval for blood loss no retroperitoneal bleed or other source -lab anemia w/u -Delirium precautions -SSI -hold Dig today and start tomorrow as level borderline high(monitor level) -hold ACEI for low BP -PT/OT -CM for placement needs -Smoking cessation counseling -ppx: lovenox (hold if plt<50k) Time Spent With Patient Time: Total time spent is greater than 50% in coordination of care (as documented) at patient's floor/unit and/or counseling patient: Subsequent: Total time with patient: 50 - 65 Minutes
[2023-03-19] MEDS: INSULIN LISPRO 1 UNIT/0.01 ML UNIT SQ SCH ×4 (08:07→20:45)
[2023-03-19] MEDS ORDERED: DEXTROSE 5% IN WATER 1,000 ML IV ONE (08:10)
--- NOTE | 2023-03-19 08:11 | Cat Scan Report ---
History: Fell, head and neck injuries TECHNIQUE: The brain was imaged without contrast in axial plane at 2.5 mm intervals. Sagittal and coronal reformats were created. The radiation exposure was limited using dose reduction technology. FINDINGS: There are old infarcts with encephalomalacia in the left cerebellum. No acute infarct is present. There is no intracranial hemorrhage, edema or mass effect. Moderate generalized atrophy is seen. Ventricles are prominent but proportionate to the atrophy. No abnormal extra-axial fluid collection is present. Bone windows show no skull fracture. Patient has a prosthetic left orbital globe. Comparison with the prior exam from 11/21/21 shows no change. 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
--- NOTE | 2023-03-19 08:13 | Cat Scan Report ---
History: Fell with neck injury TECHNIQUE: The neck was imaged without contrast in axial plane at 2.5 mm intervals. Sagittal and coronal reformats were created. The radiation exposure was limited using dose reduction technology. FINDINGS: The cervico-occipital junction is normal. There is no fracture or acute spinal injury. Chronic degenerative changes are present throughout the neck. There is severe disc space narrowing at C5-6 with moderate narrowing at C3-4, C4-5 and C6-7. There are spurs forming along the margins of these discs. There is also arthritis in the facets bilaterally throughout the mid and lower cervical spine. There is severe stenosis of the right-sided neural foramen at C4-5, moderate stenosis on the left at C4-5 and right side at C5-6 with milder stenosis of the neural foramina bilaterally above and below those levels. No prevertebral soft tissue swelling is present. Comparison with the prior exam done on 11/21/21 shows no change. IMPRESSION: No fracture. Chronic stable degenerative disc disease and arthritis Interpreted and Authenticated by: Syd Mo 03/19/23
[2023-03-19] MEDS ORDERED: HYDROXYUREA 500 MG CAPSULE PO SCH ×2 (09:00→21:00)
--- NOTE | 2023-03-19 09:30 | Cat Scan Report ---
History: Increased weakness, occult bleeding, prostate and bladder cancer6 TECHNIQUE: The abdomen was imaged without contrast in axial plane at 2.5 mm intervals from above the diaphragm through the symphysis pubis. Sagittal and coronal reformats were created. The radiation exposure was limited using dose reduction technology. FINDINGS: There are linear bands of scar or discoid atelectasis posteriorly and laterally in the right lower lobe. Small bleb is seen in the left lower lobe. There is no pleural effusion. Heart is borderline enlarged. Evaluation of abdominal organs and bowel without contrast is limited. The liver and spleen are normal in size and homogeneous. The gallbladder is contracted and contains a 7 mm stone. The bile ducts are nondilated. No abnormality is detected in the pancreas. The adrenals are normal and symmetric. There are couple cysts in both kidneys. Within a calyx posteriorly in the lower third of the right kidney there are two tiny nonobstructing calyceal stones each measuring roughly 1 mm in size. There is a similar-appearing 1 mm calcified calyceal stone in the lower half of the left kidney. No hydronephrosis is present. The ureters are decompressed. Prostate and bladder have been removed. Patient has an ileal conduit. The ostomy is located anteriorly in the upper pelvis. The ileal conduit is decompressed and noninflamed. There is no apparent mass or inflammation in the bed of the prostate and bladder. The stomach, small intestine and large bowel are normal in caliber and noninflamed. There are appendicoliths at the base of the appendix but there is no evidence of acute appendicitis. Moderate atherosclerotic disease is present in the aorta and iliac arteries. Aorta is normal in caliber. There is no gross evidence of a tumor or acute inflammation in the abdomen or pelvis. No adenopathy or ascites are present. degenerative disc disease and arthritis is present at multiple levels in the lumbar spine. No lytic or blastic lesion are present. IMPRESSION: Source of the blood loss cannot be identified on this limited study. Normal postoperative changes following cystectomy and prostatectomy Tiny nonobstructing kidney stones Cholelithiasis Interpreted and Authenticated by: Syd Mo 03/19/23
[2023-03-19 09:42] LABS: Retic Absolute 0.02 M/mcL (0.03-0.11)
[2023-03-19] MEDS: ENOXAPARIN 40 MG/0.4 ML SYRINGE SQ SCH (09:42)
[2023-03-19] MEDS: DOCUSATE SODIUM 100 MG CAPSULE PO SCH ×2 (09:43→20:45)
[2023-03-19 10:42] LABS: POC Calcium, Ionized 1.26 (1.16-1.32); POC Creatinine 2.9 (0.6-1.2); POC Potassium 3.9 (3.3-5.1)
[2023-03-19 11:33] LABS: Blood Urea Nitrogen 33 mg/dL (8-23); Calcium 9.7 mg/dL (8.6-10.4); Carbon Dioxide 25 mmol/L (22-30); Chloride 93 mmol/L (96-108); Glomerular Filtration Rate 94; Glucose 128 mg/dL (70-105)
[2023-03-19] MEDS: CIPROFLOXACIN 500 MG TABLET PO SCH ×2 (12:26→20:45)
[2023-03-19] MEDS ORDERED: DIGOXIN 125 MCG TABLET PO SCH (14:00)
[2023-03-19 14:25] LABS: POC Calcium, Ionized 1.22 (1.16-1.32); POC Creatinine 2.5 (0.6-1.2)
[2023-03-20] MEDS: 0.9 % SODIUM CHLORIDE 10 ML SYRINGE IV SCH ×3 (05:11→20:58)
[2023-03-20 06:51] LABS: Digoxin 0.8 ng/mL
[2023-03-20] MEDS: INSULIN LISPRO 1 UNIT/0.01 ML UNIT SQ SCH ×4 (06:55→20:58)
[2023-03-20 07:13] LABS: Blood Urea Nitrogen 23 mg/dL (8-23); Calcium 9.3 mg/dL (8.6-10.4); Carbon Dioxide 23 mmol/L (22-30); Chloride 96 mmol/L (96-108); Glomerular Filtration Rate 100; Glucose 100 mg/dL (70-105)
[2023-03-20 07:17] LABS: Basophils # (Auto) 0 K/mcL (0.00-0.30); Basophils % (Auto) 0 % (0.0-2.0); Eosinophils # (Auto) 0 K/mcL (0.00-0.70); Eosinophils % (Auto) 0 % (0.0-7.0); Hematocrit 23.1 % (40.1-51.0); Hemoglobin 7.5 g/dL (13.7-17.5); Lymphocytes # (Auto) 0.62 K/mcL (1.50-4.80); Lymphocytes % (Auto) 37.1 % (15.5-49.0); Mean Cell Volume 120.3 fL (80.0-100.0); Mean Corpuscular HGB Conc 32.5 g/dL (31.0-36.0); Mean Platelet Volume 10.2 fL (8.8-12.5); Monocytes # (Auto) 0.32 K/mcL (0.10-0.90); Monocytes % (Auto) 19.2 % (1.0-12.0); Neutrophils % (Auto) 43.1 % (38.0-78.0); Platelet Count 127 K/mcL (140-440); RBC 1.92 M/mcL (4.63-6.08); WBC 1.7 K/mcL (4.5-11.0)
--- NOTE | 2023-03-20 07:49 | Internal Med Progress Note ---
SUBJECTIVE Subjective Patient information: Note initiated : 03/20/23 at 7:47 am Service Date, if different from initiated Date: [] Patient: Kwabena Fong 73 y/o M admitted on 03/18/23 for weakness. Chief Complaint: [] Interval history: History of present illness: Mr. Fong is a 73 year old M Patient states he is here because of his but does not know why he was brought in. Patient is a poor historian and has dementia with increased confusion so history is obtained from chart mostly. Sound like he had become increasingly weak and confused. Recently started on Cipro for UTI. Patient has urostomy bag and has not been able to maintain it lately.. Patient not been eating or drinking much lately per the note stopped taking blood pressure medications few days ago and fell recently. Patient's blood pressure was 120 systolic when he arrived but several hours after arrival he seemed to drop into the 90s with 1 recorded blood pressure of 80/49. Last blood pressure 100/53. He is only mildly tachycardic in the 90s. Patient is on room air. Hematology reveals a leukopenia anemia and thrombocytopenia. Lactic acid pending. Urinalysis seems to have cleared up from urinalysis done on the . Troponin unremarkable. Sodium low at 121 with a chloride of 86. BUN 34 with a creatinine of 1. Patient started on IV fluids in the ED. Patient is does have chronic anemia but baseline seems to be 11-13 and it is currently 7.4. I performed a VANDANA which was negative for fecal occult blood test. Patient has a history of diabetes atrial fibrillation on digoxin but is not on anticoagulation due to fall risk. He has a history of dementia. He smokes a pack per day and has 1-2 drinks per day per recent PCP records. 03/19 Patient states he slept okay. Hemoglobin dropped to 6.3 today. Blood pressure still soft but maintaining close to 100 systolic. 2 PRBC ordered. No gross bleeding. CT abdomen pelvis to evaluate for occult bleeding source. Monitor sodium closely. Hypotonic solution this morning. Iron studies dictated of chronic inflammation. Pending full anemia work-up. Haptoglobin appropriate normal. Review of Systems: denies headache/fever/chills/nausea/vomiting/chest or abdominal pain/cough/dyspnea/diarrhea. Otherwise see above. PHYSICAL EXAM General: Awake, No acute Distress Eyes/N/T: EOMI, no scleral icterus, Head/Neck: neck supple, full ROM, CV: Regular with irregularity, No murmurs, Pulm: Clear b/l, no wheezing/rhonchi/rales, no respiratory distress Abd: soft, nontender, +BS x4 Ext: no clubbing/cyanosis/edema, nontender Back: Stage III sacral ulcer Neuro: mild confusion, no focal deficits, moves all extremities, , sensations intact b/l upper/lower Psychiatric: Skin: warm/dry, normal color, poor skin turgor Constitutional Vitals: Vital Signs Temp Pulse Resp BP Pulse Ox O2 Del Method O2 Flow Rate 97.7 F 73 22 97/58 93 Room Air 0 03/20/23 07:01 03/20/23 07:01 03/20/23 07:01 03/20/23 07:01 03/20/23 07:01 03/20/23 07:01 03/19/23 11:15 Period Temp Pulse Resp BP Sys/Bundy Pulse Ox O2 Del Method O2 Flow Rate Last 24 Hr 97.7 F-98.6 F 68-88 19-28 92-107/43-68 90-99 Room Air-Room Air 0 Intake and Output 03/19/23 03/20/23 03/20/23 19:59 03:59 11:59 Intake Total 1565 300 Output Total 675 775 100 Balance 890 -475 -100 Weight 78.29 kg Intake & Output: Intake & Output 03/19/23 03/20/23 03/20/23 19:59 03:59 11:59 Intake Total 1565 300 Output Total 675 775 100 Balance 890 -475 -100 Weight 78.29 kg Intake: Nourishment/Supplement quantity 240 (ml) IV 1000 Dextrose 5% in Water 1,000 ml @ 1000 250 mls/hr IV .Q4H ONE Rx#: [id number] Oral 300 Blood Product 325 Output: Urine Catheter Amount 325 Void Amount 675 450 100 Other: Meal Dinner Percent of Meal Consumed 50% Nourishment/Supplement name glucerna Urine Appearance Sediment Cloudy Cloudy Sediment Sediment Urine Color Dark Yellow Dark Yellow Yellow Urine Odor Strong OBJ DATA Labs 03/20/23 05:14 03/20/23 05:14 Labs: Abnormal Lab Results 0403/20/23 03/19/23 05:14 05:14 14:23 WBC 1.7 L RBC 1.92 L Hgb 7.5 L Hct 23.1 L POC Hct 20.0 L* MCV 120.3 H MCH 39.1 H RDW 22.0 H Plt Count 127 L Immature Gran % (Auto) 0.6 H [place] % (Auto) 19.2 H Lymph # (Auto) 0.62 L Monocytes % (Manual) Absolute Neutrophils 0.72 L* Platelet Estimate RBC Morphology Anisocytosis Macrocytosis Absolute Retic POC VBG pH POC VBG pCO2 at Temp POC VBG Base Excess POC Sodium 127 L Sodium 128 L POC Chloride 95 L Chloride POC BUN 28 H BUN Creatinine 0.6 L POC Creatinine 2.5 H Glucose POC Glucose 152 H Iron TIBC Ferritin AST Lactate Dehydrogenase Globulin Triglycerides Folate Cortisol AM Sample Urine Appearance Urine Protein Urine WBC Granular Casts Urine Mucus 03/19/23 03/19/23 03/19/23 10:37 10:35 10:35 WBC RBC Hgb Hct POC Hct 18.0 L* MCV MCH RDW Plt Count Immature Gran % (Auto) [place] % (Auto) Lymph # (Auto) Monocytes % (Manual) Absolute Neutrophils Platelet Estimate RBC Morphology Anisocytosis Macrocytosis Absolute Retic POC VBG pH POC VBG pCO2 at Temp POC VBG Base Excess POC Sodium 130 L Sodium 129 L POC Chloride Chloride 93 L POC BUN 31 H BUN 33 H Creatinine POC Creatinine 2.9 H Glucose 128 H POC Glucose 141 H Iron TIBC Ferritin AST Lactate Dehydrogenase Globulin Triglycerides Folate > 20.0 H Cortisol AM Sample Urine Appearance Urine Protein Urine WBC Granular Casts Urine Mucus 03/19/23 03/19/23 03/19/23 05:29 05:29 05:29 WBC RBC Hgb Hct POC Hct MCV MCH RDW Plt Count Immature Gran % (Auto) [place] % (Auto) Lymph # (Auto) Monocytes % (Manual) Absolute Neutrophils Platelet Estimate RBC Morphology Anisocytosis Macrocytosis Absolute Retic 0.02 L POC VBG pH POC VBG pCO2 at Temp POC VBG Base Excess POC Sodium Sodium POC Chloride Chloride POC BUN BUN Creatinine POC Creatinine Glucose POC Glucose Iron 44 L TIBC 188 L Ferritin 2390.0 H AST Lactate Dehydrogenase Globulin Triglycerides Folate Cortisol AM Sample 25.4 H Urine Appearance Urine Protein Urine WBC Granular Casts Urine Mucus 03/19/23 03/19/23 03/19/23 05:29 05:29 00:12 WBC 2.1 L RBC 1.48 L Hgb 6.3 L* Hct 19.0 L* POC Hct MCV 128.4 H MCH 42.6 H RDW Plt Count 127 L Immature Gran % (Auto) [place] % (Auto) Lymph # (Auto) Monocytes % (Manual) 18 H Absolute Neutrophils Platelet Estimate Decreased A RBC Morphology Abnormal A Anisocytosis 1+ A Macrocytosis 3+ A Absolute Retic POC VBG pH POC VBG pCO2 at Temp POC VBG Base Excess POC Sodium Sodium 131 L 132 L POC Chloride Chloride 94 L 94 L POC BUN BUN 31 H 36 H Creatinine POC Creatinine Glucose 109 H 119 H POC Glucose Iron TIBC Ferritin AST 43 H Lactate Dehydrogenase 302 H Globulin Triglycerides 168 H Folate Cortisol AM Sample Urine Appearance Urine Protein Urine WBC Granular Casts Urine Mucus 03/18/23 03/18/23 03/18/23 22:53 21:00 19:06 WBC RBC Hgb Hct POC Hct 22.0 L MCV MCH RDW Plt Count Immature Gran % (Auto) [place] % (Auto) Lymph # (Auto) Monocytes % (Manual) Absolute Neutrophils Platelet Estimate RBC Morphology Anisocytosis Macrocytosis Absolute Retic POC VBG pH 7.43 H POC VBG pCO2 at Temp 40.5 L POC VBG Base Excess 3.0 H POC Sodium 128 L Sodium POC Chloride 94 L Chloride POC BUN 34 H BUN Creatinine POC Creatinine 3.2 H Glucose POC Glucose 166 H Iron TIBC Ferritin AST Lactate Dehydrogenase Globulin Triglycerides Folate Cortisol AM Sample Urine Appearance Hazy A Urine Protein 100 A Urine WBC 10 H Granular Casts 3 H Urine Mucus Few A 03/18/23 03/18/23 03/18/23 18:45 18:45 18:45 WBC 2.6 L RBC 1.73 L Hgb 7.4 L Hct 22.1 L POC Hct MCV 127.7 H MCH 42.8 H RDW Plt Count 138 L Immature Gran % (Auto) [place] % (Auto) 15.4 H Lymph # (Auto) 0.63 L Monocytes % (Manual) Absolute Neutrophils 1.55 L Platelet Estimate RBC Morphology Anisocytosis Macrocytosis Absolute Retic POC VBG pH POC VBG pCO2 at Temp POC VBG Base Excess POC Sodium Sodium 121 L POC Chloride Chloride 86 L POC BUN BUN 34 H Creatinine POC Creatinine Glucose 151 H POC Glucose Iron TIBC Ferritin AST 49 H 47 H Lactate Dehydrogenase Globulin 3.8 H Triglycerides Folate Cortisol AM Sample Urine Appearance Urine Protein Urine WBC Granular Casts Urine Mucus Meds: Medications Acetaminophen (Acetaminophen 325 Mg Tablet) 650 mg PO Q6HP PRN; Protocol PRN Reason: Per Pain Protocol/Fever > 101 Albuterol/Ipratropium (Ipratropium/Albuterol 3 Ml Ampul.Neb) 3 ml NEB Q4HP PRN PRN Reason: Shortness Of Breath Ciprofloxacin (Ciprofloxacin 500 Mg Tablet) 500 mg PO BID [facility]; Protocol Stop: 03/20/23 21:01 Last Admin: 03/19/23 20:45 Dose: 500 mg Dextrose (Dextrose 50% 50 Ml Vial) 0 ml IV UD PRN PRN Reason: Per Sliding Scale Diagnostic Test (Pha) (Accu-Chek 1 Each Strip) [address] [facility] Last Admin: 03/20/23 06:54 Dose: 1 each Digoxin (Digoxin 125 Mcg Tablet) 250 mcg PO DAILY@1400 [facility] Docusate Sodium (Docusate Sodium 100 Mg Capsule) 100 mg PO BID [facility] Last Admin: 03/19/23 20:45 Dose: 100 mg Enoxaparin Sodium (Enoxaparin 40 Mg/0.4 Ml Syringe) 40 mg SQ DAILY [facility] Last Admin: 03/19/23 09:42 Dose: 40 mg Gabapentin (Gabapentin 300 Mg Capsule) 300 mg PO QDAY [facility] Glucose (Dextrose 31 Gm Oral.Susp) 15 gm PO PRN PRN PRN Reason: Hypoglycemia Hydroxyurea (Hydroxyurea 500 Mg Capsule) 1,000 mg PO DAILY [facility] Last Admin: 03/19/23 09:43 Dose: 1,000 mg Hydroxyurea (Hydroxyurea 500 Mg Capsule) 500 mg PO HS [facility] Last Admin: 03/19/23 20:45 Dose: 500 mg Potassium Chloride 40 meq/ (Dextrose) 520 mls @ 130 mls/hr IV UD PRN PRN Reason: Potassium < 3 Magnesium Sulfate (Magnesium Sulfate) 2 gm in 50 mls @ 50 mls/hr IV UD PRN PRN Reason: Magnesium </= 1.6 Insulin Human Lispro (Insulin Lispro 1 Unit/0.01 Ml Unit) 0 unit SQ ACHS [facility]; Protocol Last Admin: 03/20/23 06:55 Dose: Not Given Metoprolol Tartrate (Metoprolol Tartrate 5 Mg/5 Ml Vial) 5 mg IV Q2HP PRN PRN Reason: Tachyarrhythmias HR>110 Olanzapine (Olanzapine 5 Mg Tablet) 5 mg PO HSP PRN PRN Reason: Agitation Ondansetron HCl (Ondansetron 4 Mg/2 Ml Vial) 4 mg IV Q4HP PRN PRN Reason: Nausea And Vomiting Polyethylene Glycol (Polyethylene Glycol 3350 17 Gm Packet) 17 gm PO DAILYP PRN PRN Reason: Constipation Potassium Chloride (Potassium Chloride 20 Meq Tablet) 40 meq PO UD PRN PRN Reason: Potssium is 3-3.5 Potassium Chloride (Potassium Chloride 20 Meq Tablet) 40 meq PO UD PRN PRN Reason: Potassium < 3 Senna (Sennosides 1 Tablet) 2 tab PO DAILYP PRN PRN Reason: Constipation Sodium Chloride (0.9 % Sodium Chloride 10 Ml Syringe) 10 ml IV Q8 [facility] Last Admin: 03/20/23 05:11 Dose: 10 ml A/P Narrative A/P Narrative: A: *Acute on chronic hyponatremia: 2/2 poor oral intake on chronic -tsh/cortisol ok *Volume depletion: improving *Hypotension, hypovolemic: In proved in the ED with IVF, but still soft *Pancytopenia (leukopenia with mod Neutropenia/acute on chronic Macrocytic anemia /thrombocytopenia) -OEY=0111>1100>720 -Hgb 7.4>6.3>2prc(03/19)>7.5, dilution component as well -FOBT neg and CT neg for RP or other source of bleeding, no hemolysis, -low Reticulocyte index indicates hypoproliferation - *Encephalopathy, acute on chronic: 2/2 above *Dementia: *PAF: on Dig, No anticoagulation due to fall risk, prn IV lopressor *DM2 w/neuropathy: *HTN: on ACEI *Tobacco abuse: *recently treated with cipro for UTI: *Stage III sacral ulcer present on admission *Generalized weakness/deconditioning: P: -IVF, f/u na -monitor renal fxn/UOP/fluid balance -monitor H&H and transfuse for <7; transfuse 2prbc today -monitor ANC -stop home cipro for agranulocytosis and UA looks good on f/u -stop hydroxyurea for neutropenia -monitor for fever for neutropenic fever, abx if needed -Delirium precautions -SSI -restart Dig today (monitor levels) -hold ACEI for low BP -PT/OT -CM for placement needs -Smoking cessation counseling -ppx: lovenox (hold if plt<50k) Time Spent With Patient Time: Total time spent is greater than 50% in coordination of care (as documented) at patient's floor/unit and/or counseling patient: Subsequent: Total time with patient: 50 - 65 Minutes
[2023-03-20] MEDS ORDERED: 0.9 % SODIUM CHLORIDE 1,000 ML IV ONE (07:51)
[2023-03-20] MEDS: ENOXAPARIN 40 MG/0.4 ML SYRINGE SQ SCH (09:14)
[2023-03-20] MEDS: GABAPENTIN 300 MG CAPSULE PO SCH (09:14)
[2023-03-20] MEDS: SENNOSIDES 1 TABLET PO PRN (09:14)
[2023-03-20] MEDS: DOCUSATE SODIUM 100 MG CAPSULE PO SCH ×2 (09:14→20:57)
[2023-03-20] MEDS: DIGOXIN 125 MCG TABLET PO SCH (15:51)
[2023-03-21] MEDS: 0.9 % SODIUM CHLORIDE 10 ML SYRINGE IV SCH ×3 (05:22→20:53)
[2023-03-21 06:51] LABS: Basophils # (Auto) 0 K/mcL (0.00-0.30); Basophils % (Auto) 0 % (0.0-2.0); Eosinophils # (Auto) 0.01 K/mcL (0.00-0.70); Eosinophils % (Auto) 0.5 % (0.0-7.0); Hematocrit 24.5 % (40.1-51.0); Hemoglobin 7.8 g/dL (13.7-17.5); Lymphocytes # (Auto) 0.72 K/mcL (1.50-4.80); Lymphocytes % (Auto) 38.7 % (15.5-49.0); Mean Cell Volume 123.7 fL (80.0-100.0); Mean Corpuscular HGB Conc 31.8 g/dL (31.0-36.0); Monocytes # (Auto) 0.35 K/mcL (0.10-0.90); Monocytes % (Auto) 18.8 % (1.0-12.0); Neutrophils % (Auto) 41.5 % (38.0-78.0); Platelet Count 159 K/mcL (140-440); RBC 1.98 M/mcL (4.63-6.08); Red Cell Distribution Width 21.4 % (11.5-14.5); WBC 1.9 K/mcL (4.5-11.0)
[2023-03-21 07:17] LABS: ALT/SGPT 44 U/L (<40); AST/SGOT 44 U/L (<40); Albumin 3.2 gm/dL (3.2-5.2); Alkaline Phosphatase 63 U/L (39-117); Bilirubin,Total 0.7 mg/dL (0.1-1.0); Blood Urea Nitrogen 17 mg/dL (8-23); Calcium 9.2 mg/dL (8.6-10.4); Carbon Dioxide 24 mmol/L (22-30); Chloride 99 mmol/L (96-108); Globulin 3.1 gm/dL (2.2-3.7); Glomerular Filtration Rate 100; Glucose 105 mg/dL (70-105)
[2023-03-21] MEDS: INSULIN LISPRO 1 UNIT/0.01 ML UNIT SQ SCH ×4 (07:21→20:30)
--- NOTE | 2023-03-21 09:20 | Internal Med Progress Note ---
SUBJECTIVE Subjective Patient information: Note initiated : 03/21/23 at 9:04 am Service Date, if different from initiated Date: [] Patient: Kwabena Fong 73 y/o M admitted on 03/18/23 for weakness. Chief Complaint: [] Interval history: Mr. Fong is a 73 year old M Patient states he is here because of his but does not know why he was brought in. Patient is a poor historian and has dementia with increased confusion so history is obtained from chart mostly. Sound like he had become increasingly weak and confused. Recently started on Cipro for UTI. Patient has urostomy bag and has not been able to maintain it lately.. Patient not been eating or drinking much lately per the note stopped taking blood pressure medications few days ago and fell recently. Patient's blood pressure was 120 systolic when he arrived but several hours after arrival he seemed to drop into the 90s with 1 recorded blood pressure of 80/49. Last blood pressure 100/53. He is only mildly tachycardic in the 90s. Patient is on room air. Hematology reveals a leukopenia anemia and thrombocytopenia. Lactic acid pending. Urinalysis seems to have cleared up from urinalysis done on the . Troponin unremarkable. Sodium low at 121 with a chloride of 86. BUN 34 with a creatinine of 1. Patient started on IV fluids in the ED. Patient is does have chronic anemia but baseline seems to be 11-13 and it is currently 7.4. I performed a VANDANA which was negative for fecal occult blood test. Patient has a history of diabetes atrial fibrillation on digoxin but is not on anticoagulation due to fall risk. He has a history of dementia. He smokes a pack per day and has 1-2 drinks per day per recent PCP records. 03/19 Patient states he slept okay. Hemoglobin dropped to 6.3 today. Blood pressure still soft but maintaining close to 100 systolic. 2 PRBC ordered. No gross bleeding. CT abdomen pelvis to evaluate for occult bleeding source. Monitor sodium closely. Hypotonic solution this morning. Iron studies dictated of chronic inflammation. Pending full anemia work-up. Haptoglobin appropriate normal. 03/20: Patient seems a feeling a little bit better. Not as weak. Leukopenia/neutropenia worse. Hemoglobin better than yesterday but received 2 units of blood and respond as well as expected. Platelets stable. home Cipro stopped and hydroxyurea stopped for agranulocytosis. Sodium still low but stable. Continue to monitor sodium and CBC. 03/21: There was no major overnight events. Serum sodium level 133 this morning. WBC 1.9, and ANC 0.77. Cultures no growth to date. Afebrile overnight. Patient denies any pain or discomfort. Transfer from PCU to med surg. Discontinue telemetry. Saline lock. Daily cbc and CMP to trend blood counts and electrolyte levels, respectively. Wound care team for sacral decubitus ulcer care. PT OT for placement planning. Constitutional Vitals: Vital Signs Temp Pulse Resp BP Pulse Ox O2 Del Method O2 Flow Rate 36.9 C 76 26 H 101/62 99 Room Air 0 03/21/23 04:01 03/21/23 06:01 03/21/23 06:01 03/21/23 06:01 03/21/23 06:01 03/21/23 06:01 03/19/23 11:15 Period Temp Pulse Resp BP Sys/Bundy Pulse Ox O2 Del Method O2 Flow Rate Last 24 Hr 36.6 C-37.3 C 76-89 15-27 92-111/55-66 93-99 Room Air-Room Air Intake and Output 03/20/23 03/21/23 03/21/23 19:59 03:59 11:59 Intake Total 120 1300 150 Output Total 800 500 525 Balance -680 800 -375 Weight 78.29 kg 78.381 kg Intake & Output: Intake & Output 03/20/23 03/21/23 03/21/23 19:59 03:59 11:59 Intake Total 120 1300 150 Output Total 800 500 525 Balance -680 800 -375 Weight 78.29 kg 78.381 kg Intake: IV 1000 Sodium Chloride 0.9% 1,000 ml @ 1000 84 mls/hr IV .[id number] Rx#: [id number] Oral 120 300 150 Output: Void Amount 800 500 525 Other: Meal Lunch Percent of Meal Consumed 100% Feeding Ability Independent Urine Appearance Cloudy Cloudy Clear Sediment Sediment Mucous Threads Urine Color Dark Yellow Dark Yellow Dark Yellow Head Head exam: Present atraumatic and normal inspection Eye Eye exam: Present normal appearance ENT ENT exam: Present mucous membranes moist, normal exam and normal external ear exam Neck Neck exam: Present normal inspection Respiratory Respiratory exam: Present normal respiratory exam Cardiovascular Cardiovascular exam: Present normal rate and rhythm GI/Abdominal GI/Abdominal exam: Present normal bowel sounds Additional comments: Urostomy Back Exam Back exam: Present normal inspection Neurological Exam Neurological exam: Present alert and oriented X3 Skin Skin exam: Present warm; Absent intact Additional comments: Stage 2 sacral decubitus ulcer OBJ DATA Labs 03/21/23 05:15 03/21/23 05:15 Labs: Abnormal Lab Results 03/21/23 03/21/23 03/20/23 05:15 05:15 05:14 WBC 1.9 L RBC 1.98 L Hgb 7.8 L Hct 24.5 L POC Hct MCV 123.7 H MCH 39.4 H RDW 21.4 H Plt Count Immature Gran % (Auto) Mobile % (Auto) 18.8 H Lymph # (Auto) 0.72 L Monocytes % (Manual) Absolute Neutrophils 0.77 L* Platelet Estimate RBC Morphology Anisocytosis Macrocytosis Absolute Retic POC VBG pH POC VBG pCO2 at Temp POC VBG Base Excess POC Sodium Sodium 128 L POC Chloride Chloride POC BUN BUN Creatinine 0.6 L 0.6 L POC Creatinine Glucose POC Glucose Iron TIBC Ferritin AST 44 H ALT 44 H Lactate Dehydrogenase Globulin Triglycerides Folate Cortisol AM Sample Urine Appearance Urine Protein Urine WBC Granular Casts Urine Mucus 03/20/23 03/19/23 03/19/23 05:14 14:23 10:37 WBC 1.7 L RBC 1.92 L Hgb 7.5 L Hct 23.1 L POC Hct 20.0 L* 18.0 L* MCV 120.3 H MCH 39.1 H RDW 22.0 H Plt Count 127 L Immature Gran % (Auto) 0.6 H Mobile % (Auto) 19.2 H Lymph # (Auto) 0.62 L Monocytes % (Manual) Absolute Neutrophils 0.72 L* Platelet Estimate RBC Morphology Anisocytosis Macrocytosis Absolute Retic POC VBG pH POC VBG pCO2 at Temp POC VBG Base Excess POC Sodium 127 L 130 L Sodium POC Chloride 95 L Chloride POC BUN 28 H 31 H BUN Creatinine POC Creatinine 2.5 H 2.9 H Glucose POC Glucose 152 H 141 H Iron TIBC Ferritin AST ALT Lactate Dehydrogenase Globulin Triglycerides Folate Cortisol AM Sample Urine Appearance Urine Protein Urine WBC Granular Casts Urine Mucus 03/19/23 03/19/23 03/19/23 10:35 10:35 05:29 WBC RBC Hgb Hct POC Hct MCV MCH RDW Plt Count Immature Gran % (Auto) Mobile % (Auto) Lymph # (Auto) Monocytes % (Manual) Absolute Neutrophils Platelet Estimate RBC Morphology Anisocytosis Macrocytosis Absolute Retic POC VBG pH POC VBG pCO2 at Temp POC VBG Base Excess POC Sodium Sodium 129 L POC Chloride Chloride 93 L POC BUN BUN 33 H Creatinine POC Creatinine Glucose 128 H POC Glucose Iron 44 L TIBC 188 L Ferritin 2390.0 H AST ALT Lactate Dehydrogenase Globulin Triglycerides Folate > 20.0 H Cortisol AM Sample Urine Appearance Urine Protein Urine WBC Granular Casts Urine Mucus 03/19/23 03/19/23 03/19/23 05:29 05:29 05:29 WBC RBC Hgb Hct POC Hct MCV MCH RDW Plt Count Immature Gran % (Auto) Mobile % (Auto) Lymph # (Auto) Monocytes % (Manual) Absolute Neutrophils Platelet Estimate RBC Morphology Anisocytosis Macrocytosis Absolute Retic 0.02 L POC VBG pH POC VBG pCO2 at Temp POC VBG Base Excess POC Sodium Sodium 131 L POC Chloride Chloride 94 L POC BUN BUN 31 H Creatinine POC Creatinine Glucose 109 H POC Glucose Iron TIBC Ferritin AST 43 H ALT Lactate Dehydrogenase 302 H Globulin Triglycerides 168 H Folate Cortisol AM Sample 25.4 H Urine Appearance Urine Protein Urine WBC Granular Casts Urine Mucus 03/19/23 03/19/23 03/18/23 05:29 00:12 22:53 WBC 2.1 L RBC 1.48 L Hgb 6.3 L* Hct 19.0 L* POC Hct MCV 128.4 H MCH 42.6 H RDW Plt Count 127 L Immature Gran % (Auto) Mobile % (Auto) Lymph # (Auto) Monocytes % (Manual) 18 H Absolute Neutrophils Platelet Estimate Decreased A RBC Morphology Abnormal A Anisocytosis 1+ A Macrocytosis 3+ A Absolute Retic POC VBG pH 7.43 H POC VBG pCO2 at Temp 40.5 L POC VBG Base Excess 3.0 H POC Sodium Sodium 132 L POC Chloride Chloride 94 L POC BUN BUN 36 H Creatinine POC Creatinine Glucose 119 H POC Glucose Iron TIBC Ferritin AST ALT Lactate Dehydrogenase Globulin Triglycerides Folate Cortisol AM Sample Urine Appearance Urine Protein Urine WBC Granular Casts Urine Mucus 03/18/23 03/18/23 03/18/23 21:00 19:06 18:45 WBC RBC Hgb Hct POC Hct 22.0 L MCV MCH RDW Plt Count Immature Gran % (Auto) Mobile % (Auto) Lymph # (Auto) Monocytes % (Manual) Absolute Neutrophils Platelet Estimate RBC Morphology Anisocytosis Macrocytosis Absolute Retic POC VBG pH POC VBG pCO2 at Temp POC VBG Base Excess POC Sodium 128 L Sodium POC Chloride 94 L Chloride POC BUN 34 H BUN Creatinine POC Creatinine 3.2 H Glucose POC Glucose 166 H Iron TIBC Ferritin AST 49 H ALT Lactate Dehydrogenase Globulin Triglycerides Folate Cortisol AM Sample Urine Appearance Hazy A Urine Protein 100 A Urine WBC 10 H Granular Casts 3 H Urine Mucus Few A 03/18/23 03/18/23 18:45 18:45 WBC 2.6 L RBC 1.73 L Hgb 7.4 L Hct 22.1 L POC Hct MCV 127.7 H MCH 42.8 H RDW Plt Count 138 L Immature Gran % (Auto) Mobile % (Auto) 15.4 H Lymph # (Auto) 0.63 L Monocytes % (Manual) Absolute Neutrophils 1.55 L Platelet Estimate RBC Morphology Anisocytosis Macrocytosis Absolute Retic POC VBG pH POC VBG pCO2 at Temp POC VBG Base Excess POC Sodium Sodium 121 L POC Chloride Chloride 86 L POC BUN BUN 34 H Creatinine POC Creatinine Glucose 151 H POC Glucose Iron TIBC Ferritin AST 47 H ALT Lactate Dehydrogenase Globulin 3.8 H Triglycerides Folate Cortisol AM Sample Urine Appearance Urine Protein Urine WBC Granular Casts Urine Mucus Meds: Medications Acetaminophen (Acetaminophen 325 Mg Tablet) 650 mg PO Q6HP PRN; Protocol PRN Reason: Per Pain Protocol/Fever > 101 Albuterol/Ipratropium (Ipratropium/Albuterol 3 Ml Ampul.Neb) 3 ml NEB Q4HP PRN PRN Reason: Shortness Of Breath Dextrose (Dextrose 50% 50 Ml Vial) 0 ml IV UD PRN PRN Reason: Per Sliding Scale Diagnostic Test (Pha) (Accu-Chek 1 Each Strip) [address] [facility] Last Admin: 03/21/23 07:21 Dose: 1 each Digoxin (Digoxin 125 Mcg Tablet) 250 mcg PO DAILY@1400 [facility] Last Admin: 03/20/23 15:51 Dose: 250 mcg Docusate Sodium (Docusate Sodium 100 Mg Capsule) [address] [facility] Last Admin: 03/20/23 20:57 Dose: 100 mg Gabapentin (Gabapentin 300 Mg Capsule) [address] [facility] Last Admin: 03/20/23 09:14 Dose: 300 mg Glucose (Dextrose 31 Gm Oral.Susp) 15 gm PO PRN PRN PRN Reason: Hypoglycemia Potassium Chloride 40 meq/ (Dextrose) 520 mls @ 130 mls/hr IV UD PRN PRN Reason: Potassium < 3 Magnesium Sulfate (Magnesium Sulfate) 2 gm in 50 mls @ 50 mls/hr IV UD PRN PRN Reason: Magnesium </= 1.6 Insulin Human Lispro (Insulin Lispro 1 Unit/0.01 Ml Unit) [address] [facility]; Protocol Last Admin: 03/21/23 07:21 Dose: Not Given Metoprolol Tartrate (Metoprolol Tartrate 5 Mg/5 Ml Vial) 5 mg IV Q2HP PRN PRN Reason: Tachyarrhythmias HR>110 Olanzapine (Olanzapine 5 Mg Tablet) 5 mg PO HSP PRN PRN Reason: Agitation Ondansetron HCl (Ondansetron 4 Mg/2 Ml Vial) 4 mg IV Q4HP PRN PRN Reason: Nausea And Vomiting Polyethylene Glycol (Polyethylene Glycol 3350 17 Gm Packet) 17 gm PO DAILYP PRN PRN Reason: Constipation Potassium Chloride (Potassium Chloride 20 Meq Tablet) 40 meq PO UD PRN PRN Reason: Potssium is 3-3.5 Potassium Chloride (Potassium Chloride 20 Meq Tablet) 40 meq PO UD PRN PRN Reason: Potassium < 3 Senna (Sennosides 1 Tablet) 2 tab PO DAILYP PRN PRN Reason: Constipation Last Admin: 03/20/23 09:14 Dose: 2 tab Sodium Chloride (0.9 % Sodium Chloride 10 Ml Syringe) [address] [facility] Last Admin: 03/21/23 05:22 Dose: 10 ml A/P Assessment and plan (1) Sacral decubitus ulcer, stage II: Status: Acute (2) Anemia: Status: Acute (3) Agranulocytosis: Status: Acute (4) Acute hyponatremia: Status: Acute (5) Paroxysmal atrial fibrillation: Status: Acute (6) Hypertension: Status: Chronic (7) Diabetes mellitus, type II: Status: Chronic Narrative A/P Narrative: Assessment and Plans: 1. Acute hyponatremia: Serum sodium level improved from 128 to 133 today. Saline lock. Encourage oral intake Daily CMP to trend serum sodium level 2. Anemia and leukopenia, suspected agranulocytosis: Since ANC>=500, there is no need for neutropenic precautions d/c hydroxyurea Daily cbc w/ diff to trend H/H and WBC/ANC Blood cultures no growth to date 3. Paroxysmal atrial fibrillation: [id number] score of 3, no anticoagulations right now due to anemia Digoxin Lopressor IV PRN rate control 4. Essential hypertension: Holding Lisinopril for borderline low blood pressur e 5. Stage II sacral decubitus ulcer: Wound care team for daily wound care 6. Dementia: Physical therapy evaluation and treatment for placement planning Occupational therapy evaluation and treatment for placement planning 7. T2DM: HgA1c Holding Metformin Insulin Lispro SSI AC HS Accu Check AC HS Hypoglycemia protocol Diabetic diet GI ppx: not currently indicated DVT ppx: SCDs Code status: DNR Prognosis: Guarded Disposition: inpatient med surg; PT OT Time Spent With Patient Time: Total time spent is greater than 50% in coordination of care (as documented) at patient's floor/unit and/or counseling patient: Subsequent: Total time with patient: 35 - 49 minutes
[2023-03-21] MEDS: GABAPENTIN 300 MG CAPSULE PO SCH (10:20)
[2023-03-21] MEDS: SENNOSIDES 1 TABLET PO PRN (10:20)
[2023-03-21] MEDS: DOCUSATE SODIUM 100 MG CAPSULE PO SCH ×2 (10:20→20:29)
[2023-03-21] MEDS: DIGOXIN 125 MCG TABLET PO SCH (14:55)
--- NOTE | 2023-03-21 18:33 | XRay Report ---
CLINICAL INFORMATION: Swelling and pain COMPARISON: None FINDINGS: No fracture or other osseous abnormality. Severe first CMC, moderate distal radioulnar and lunocapitate degeneration appreciated. Periarticular calcifications appreciated along the proximal carpal row. Moderate diffuse soft tissue swelling noted. IMPRESSION: Multilevel degeneration. Diffuse soft tissue swelling likely indicating edema or cellulitis Interpreted and Authenticated by: Camilo Corea 03/21/23
[2023-03-22 06:36] LABS: Basophils # (Auto) 0 K/mcL (0.00-0.30); Basophils % (Auto) 0 % (0.0-2.0); Eosinophils # (Auto) 0 K/mcL (0.00-0.70); Eosinophils % (Auto) 0 % (0.0-7.0); Hematocrit 22.8 % (40.1-51.0); Hemoglobin 7.3 g/dL (13.7-17.5); Lymphocytes # (Auto) 0.95 K/mcL (1.50-4.80); Lymphocytes % (Auto) 39.3 % (15.5-49.0); Mean Cell Volume 120.6 fL (80.0-100.0); Mean Platelet Volume 9.7 fL (8.8-12.5); Monocytes # (Auto) 0.55 K/mcL (0.10-0.90); Monocytes % (Auto) 22.7 % (1.0-12.0); Neutrophils % (Auto) 37.2 % (38.0-78.0); Platelet Count 183 K/mcL (140-440); RBC 1.89 M/mcL (4.63-6.08); Red Cell Distribution Width 20.3 % (11.5-14.5); WBC 2.4 K/mcL (4.5-11.0)
[2023-03-22 06:39] LABS: ALT/SGPT 34 U/L (<40); AST/SGOT 25 U/L (<40); Albumin 3.2 gm/dL (3.2-5.2); Albumin/Globulin Ratio 0.9 (1.0-2.3); Alkaline Phosphatase 61 U/L (39-117); Bilirubin,Total 0.8 mg/dL (0.1-1.0); Blood Urea Nitrogen 17 mg/dL (8-23); Calcium 9.4 mg/dL (8.6-10.4); Carbon Dioxide 24 mmol/L (22-30); Chloride 100 mmol/L (96-108); Globulin 3.4 gm/dL (2.2-3.7); Glomerular Filtration Rate 107; Glucose 125 mg/dL (70-105)
[2023-03-22] MEDS: 0.9 % SODIUM CHLORIDE 10 ML SYRINGE IV SCH ×2 (07:01→13:29)
[2023-03-22] MEDS: INSULIN LISPRO 1 UNIT/0.01 ML UNIT SQ SCH ×2 (07:01→11:16)
[2023-03-22] MEDS: GABAPENTIN 300 MG CAPSULE PO SCH (08:19)
[2023-03-22] MEDS: DOCUSATE SODIUM 100 MG CAPSULE PO SCH (08:19)
--- NOTE | 2023-03-22 10:24 | Discharge Summary ---
Discharge Provider Provider IMPORTANT FOLLOW-UP INFORMATION FOR PCP: Patient information: Note initiated : 03/22/23 at 10:20 am Service Date, if different from initiated Date: [] Patient: Kwabena Fong 73 y/o M admitted on 03/18/23 for weakness. Chief Complaint: [] Date of admission: 03/18/23 23:01 Discharge date: 03/22/23 Primary care physician: Stephanie Arthur DO Attending physician on admission: Jacoby Koo Consults: 03/18/23 Consult to Physician [CONS] Stat Comment: Consulting Provider: Jacoby Koo Reason For Exam: Physician to Consult Attending physician on discharge: Chi Keysha Pui COURSE Hospital Course Hospital course: Mr. Fong is a 73 year old M Patient states he is here because of his but does not know why he was brought in. Patient is a poor historian and has dementia with increased confusion so history is obtained from chart mostly. Sound like he had become increasingly weak and confused. Recently started on Cipro for UTI. Patient has urostomy bag and has not been able to maintain it lately.. Patient not been eating or drinking much lately per the note stopped t aking blood pressure medications few days ago and fell recently. Patient's blood pressure was 120 systolic when he arrived but several hours after arrival he seemed to drop into the 90s with 1 recorded blood pressure of 80/49. Last blood pressure 100/53. He is only mildly tachycardic in the 90s. Patient is on room air. Hematology reveals a leukopenia anemia and thrombocytopenia. Lactic acid pending. Urinalysis seems to have cleared up from urinalysis done on the . Troponin unremarkable. Sodium low at 121 with a chloride of 86. BUN 34 with a creatinine of 1. Patient started on IV fluids in the ED. Patient is does have chronic anemia but baseline seems to be 11-13 and it is currently 7.4. I performed a VANDANA which was negative for fecal occult blood test. Patient has a history of diabetes atrial fibrillation on digoxin but is not on anticoagulation due to fall risk. He has a history of dementia. He smokes a pack per day and has 1-2 drinks per day per recent PCP records. 03/19 Patient states he slept okay. Hemoglobin dropped to 6.3 today. Blood pressure still soft but maintaining close to 100 systolic. 2 PRBC ordered. No gross bleeding. CT abdomen pelvis to evaluate for occult bleeding source. Monitor sodium closely. Hypotonic solution this morning. Iron studies dictated of chronic inflammation. Pending full anemia work-up. Haptoglobin appropriate normal. 03/20: Patient seems a feeling a little bit better. Not as weak. Leukopenia/neutropenia worse. Hemoglobin better than yesterday but received 2 units of blood and respond as well as expected. Platelets stable. home Cipro stopped and hydroxyurea stopped for agranulocytosis. Sodium still low but stable. Continue to monitor sodium and CBC. 03/21: There was no major overnight events. Serum sodium level 133 this morning. WBC 1.9, and ANC 0.77. Cultures no growth to date. Afebrile overnight. Patient denies any pain or discomfort. Transfer from PCU to med surg. Discontinue telemetry. Saline lock. Daily cbc and CMP to trend blood counts and electrolyte levels, respectively. Wound care team for sacral decubitus ulcer care. PT OT for placement planning. 03/22: Discharged to SNF with Rx including Clindamycin given to him. Follow up with SNF MD. All questions were answered prior to patient being physically discharged. Discharge diagnosis: Right wrist cellulitis Time Spent with Patient Time attestation: Total time spent providing and/or coordinating discharge services: Time spent: Less than 30 minutes EXAM Constitutional Vitals: Temp Pulse Resp BP Pulse Ox O2 Del Method O2 Flow Rate 36.9 C 70 24 H 101/68 100 Room Air 0 03/22/23 08:00 03/22/23 08:00 03/22/23 08:00 03/22/23 08:00 03/22/23 08:00 03/22/23 08:00 03/19/23 11:15 General appearance: cooperative and no acute distress Head Head exam: Present atraumatic and normocephalic Eye Eye exam: Present EOMI and PERRL ENT ENT exam: Present mucous membranes moist, normal exam and normal external ear exam Neck Neck exam: Present normal inspection; Absent lymphadenopathy, tenderness or thyromegaly Respiratory Respiratory exam: Absent accessory muscle use, respiratory distress or wheezes Cardiovascular Cardiovascular exam: Present normal rate and rhythm; Absent JVD GI/Abdominal GI/Abdominal exam: Present normal bowel sounds and soft; Absent organomegaly or tenderness Rectal Rectal exam: Present deferred Additional comments: Urostomy in place Extremities Exam Extremities exam: Present full ROM, joint swelling, normal capillary refill and tenderness; Absent normal inspection Additional comments: Right wrist erythema and swelling Neurological Exam Neurological exam: Present alert, CN II-XII intact and oriented X3; Absent motor sensory deficit Psychiatric Psychiatric exam: Present normal affect and normal mood; Absent anxious or depressed Skin Skin exam: Present dry; Absent intact Additional comments: Stage II sacral decubitus ulcer Discharge Data Data Completed and Pending Labs on day of discharge: Labs from last 24 hours 03/22/23 03/22/23 05:38 05:38 WBC 2.4 L RBC 1.89 L Hgb 7.3 L Hct 22.8 L MCV 120.6 H MCH 38.6 H MCHC 32.0 RDW 20.3 H Plt Count 183 MPV 9.7 Immature Gran % (Auto) 0.8 H Neut % (Auto) 37.2 L Lymph % (Auto) 39.3 [place] % (Auto) 22.7 H Eos % (Auto) 0 Baso % (Auto) 0 Lymph # (Auto) 0.95 L [place] # (Auto) 0.55 Eos # (Auto) 0 Baso # (Auto) 0 Immature Gran # 0.02 Absolute Neutrophils 0.90 L* Sodium 135 Potassium 3.8 Chloride 100 Carbon Dioxide 24 Anion Gap 11.0 BUN 17 Creatinine 0.5 L GFR Calculation 107 Glucose 125 H Calcium 9.4 Total Bilirubin 0.8 AST 25 ALT 34 Alkaline Phosphatase 61 Total Protein 6.6 Albumin 3.2 Globulin 3.4 Albumin/Globulin Ratio 0.9 L Preliminary micro results at discharge 03/18/23 18:59 Blood Culture - Preliminary Blood 03/18/23 18:30 Blood Culture - Preliminary Blood Discharge Plan Patient/Caregiver Discharge Instructions Activity: increase activity as tolerated Diet: Consistent Carbohydrate Prescriptions: New clindamycin HCl 300 mg capsule 300 mg PO Q6H Qty: 28 0RF Continued lisinopril 10 mg tablet 10 mg PO QDAY Qty: 90 2RF metformin 1,000 mg tablet 1,000 mg PO BID Qty: 180 1RF digoxin 250 mcg (0.25 mg) tablet 0.25 mg PO QDAY Qty: 90 1RF cranberry 36 mg PO QDAY Centrum Silver Ultra Men's 300-600-300 mcg tablet 1 tab PO QDAY cholecalciferol (vitamin D3) [Vitamin D3] 50 mcg (2,000 unit) tablet 50 mcg PO QDAY gabapentin 300 mg capsule 300 mg PO QDAY Qty: 30 4RF Discontinued hydroxyurea [Hydrea] 500 mg capsule See Rx Instructions PO .COMPLEX Qty: 180 2RF Rx Instructions: 1000mg qAM, 500mg qPM ciprofloxacin HCl 500 mg tablet 500 mg PO BID Qty: 14 0RF aspirin 81 mg Capsule,Delayed Release(Dr/Ec) 81 mg PO QDAY Follow Up Plan Follow up with: Stephanie Arthur DO [Primary Care Provider] - Patient Disposition: Xfer SNF Rehab Potential: Good I certify that the patient requires SNF services: Yes Overall status at discharge: patient is progressing back to baseline Discharge Orders: Discharge Order (Routine); Ordered 03/22/23 Ordered By: Christian Yeboah
[2023-03-22] MEDS: DIGOXIN 125 MCG TABLET PO SCH (13:34)
== END 2023-03-22 14:11 | DRG 640 ==
LOC: ED 18:23 → ICU 23:01 → MEDSUR 03-21 17:05
PROVIDERS: ADMIT Internal Medicine; ATTEND Internal Medicine